=== PATIENT | female | born 1945 | race Caucasian/White ===

== ENCOUNTER 2017-04-19 10:35 | Inpatient (IN) | payer MEDICARE, MEDICAID ==
[~2017-04-19] VITALS: Ht 157.5 cm; Wt 74.8 kg
[2017-04-19] MEDS ORDERED: SERT25TA PO (10:53)
--- NOTE | 2017-04-19 11:00 | NUR ---
Dr morgan at the bedside for MSE. Pt BIB daughter for Psych eval stating pt is unable to take care of self and confused. Dr schwartz sent them here for eval.
--- NOTE | 2017-04-19 11:04 | NUR ---
Hanh coleman in EDM - 04/19/17 at 1115 by CLYDE ambulanz at bedside to take the pt back home. pt comfortable the whole er stay. pt happy to go home.
--- NOTE | 2017-04-19 11:07 | NUR ---
Hanh coleman in ED - 04/19/17 at 1115 by CLYDE pt voided in the bedside commode, able to move with no difficulty.
--- NOTE | 2017-04-19 11:08 | NUR ---
Dr Pereyra removed contac lens from RT eye, pt tolorated well.
[2017-04-19 11:27] LABS: BASOPHILS # (AUTO) 0.1 K/uL (0.0-8.0); BASOPHILS % (AUTO) 0.7 % (0.0-2.0); EOSINOPHILS # (AUTO) 0.1 K/uL (0.0-0.7); EOSINOPHILS % (AUTO) 1.4 % (0.0-7.0); HEMATOCRIT 35.1 % (31.2-41.9); HEMOGLOBIN 11.8 g/dL (10.9-14.3); LYMPHOCYTES # (AUTO) 1.4 K/uL (20.0-40.0); LYMPHOCYTES % (AUTO) 16.2 % (20.5-51.5); MEAN CORPUSCULAR HEMOGLOBIN 30.9 uug (24.7-32.8); MEAN CORPUSCULAR HGB CONC 34 g/dL (32.3-35.6); MONOCYTES # (AUTO) 0.7 K/uL (2.0-10.0); MONOCYTES % (AUTO) 8.6 % (0.0-11.0); NEUTROPHILS # (AUTO) 6.3 K/uL (1.8-8.9); NEUTROPHILS % (AUTO) 73.1 % (38.5-71.5); PLATELET COUNT (AUTO) 325 K/uL (179-408); RED BLOOD CELL COUNT(AUTO) 3.82 MIL/uL (3.63-4.92); WHITE BLOOD COUNT (AUTO) 8.6 K/uL (3.8-11.8)
[2017-04-19 11:35] LABS: CARBON DIOXIDE 31 mmol/L (21-32); CHLORIDE 102 mmol/L (98-107); GLUCOSE 99 mg/dL (74-106); UREA NITROGEN, BLOOD 11 mg/dL (7-18)
[2017-04-19 11:41] LABS: ALANINE AMINOTRANSFERASE 10 U/L (14-59); ALKALINE PHOSPHATASE 148 U/L (50-136); ASPARTATE AMINOTRANSFERASE 12 U/L (15-37); BILIRUBIN,DIRECT 0.1 mg/dL (0.0-0.2); BILIRUBIN,TOTAL 0.4 mg/dL (0.2-1.0); TOTAL PROTEIN, SERUM 8.2 g/dL (6.4-8.2)
[2017-04-19 11:44] LABS: ACETAMINOPHEN < 2.0 ug/mL (10-30)
[2017-04-19 11:50] LABS: ETHANOL < 3 MG/DL (0-0)
--- NOTE | 2017-04-19 11:50 | NUR ---
Pt is medicaly cleared by Dr Pereyra. Left message for Raz Negrete for psych eval. awaiting call back.
--- NOTE | 2017-04-19 12:04 | NUR ---
Raz Negrete from [facility] called and ETA is 15 min.
[2017-04-19 13:47] LABS: *BILIRUBIN,URIN NEGATIVE (NEGATIVE); *BLOOD, URINE 1+ (NEGATIVE); *CLARITY,URINE SLIGHTLY CLOUDY (CLEAR); *COLOR,URINE YELLOW (YELLOW); *PROTEIN,URINE 2+ (NEGATIVE); LEUKOCYTE ESTERASE ,URINE 2+ (NEGATIVE); NITRITE, URINE POSITIVE (NEGATIVE); PH,URINE 7.5 (5.0-8.0); UGLUCOSE NEGATIVE (NEGATIVE)
[2017-04-19 13:57] LABS: *KETONES,URINE NEGATIVE (NEGATIVE)
[2017-04-19 13:58] LABS: BACTERIA,URINE MODERATE /HPF (NONE SEEN); SQUAMOUS EPITHELIAL CELL,UR MODERATE /HPF (NONE SEEN)
[2017-04-19 14:00] LABS: *AMPHETAMINE, URINE NEGATIVE (NEGATIVE); *BARBITURATE, URINE NEGATIVE (NEGATIVE); *CANNABINOID, URINE NEGATIVE (NEGATIVE); *COCCAINE, URINE NEGATIVE (NEGATIVE); *OPIATE, URINE NEGATIVE (NEGATIVE); *PHENCYCLIDINE SCREEN,URINE NEGATIVE (NEGATIVE)
--- NOTE | 2017-04-19 15:13 | NUR ---
71 YEAR OLD FEMALE ADMITTED TO ROOM 138 B FOR GRAVELY DIABLE AND PSYCHOSIS .PT IS [id number].DAUGHTER AT BED SIDE,ORIENT THE PT TO ROOM AND SURROUNDINGS,V/S ARE STABLE,
[2017-04-19] MEDS ORDERED: MAG HYDROX/AL HYDROX/SIMETH 30 ML LIQUID UDC PO PRN (15:15)
[2017-04-19] MEDS ORDERED: MAGNESIUM HYDROXIDE 30 ML LIQUID UDC PO PRN (15:15)
[2017-04-19] MEDS ORDERED: ACETAMINOPHEN 325 MG TABLET PO PRN (15:15)
[2017-04-19] MEDS ORDERED: TEMAZEPAM 7.5 MG CAPSULE PO PRN (15:15)
[2017-04-19] MEDS ORDERED: LORAZEPAM 0.5 MG TABLET PO PRN (15:15)
--- NOTE | 2017-04-19 15:20 | NUR ---
dr Denny and dr schwartz notified for the admissions
[2017-04-19 16:04] VITALS: BP 148/74
--- NOTE | 2017-04-19 19:45 | NUR ---
RECEIVED PATIENT IN HER ROOM SITTING IN HER BED. SHE WAS NOTED A/O X 2. SHE IS ABLE TO AMBULATED WITH STEADY GAIT WITH THE AID OF A FWW. PATIENT WAS NOTED DISORIENTED, FLIGHT OF IDEAS, TANGENTIAL. HOWEVER, SHE IS ABLE TO MAKE HER NEEDS KNOWN. IT WAS NOTED THAT HER URINALYSIS RESULTS SHOW POSSIBLE UTI. PATIENT IS POOR HISTORIAN AND UNABLE TO DETERMINE IF PATIENT IS ALLERGIC TO ANY MEDICATION OR FOOD. CALLED LINDA RENE AT [phone], LEFT MESSAGE TO CALL BACK. AWAITING FOR HER CALL BACK. SAFETY WAS EMPHASIS. PATIENT DENIES PAIN AT THIS TIME. WILL CONTINUE TO MONITOR CLOSELY.
[2017-04-19 20:20] VITALS: BP 108/50
--- NOTE | 2017-04-19 20:20 | NUR ---
SPOKE WITH DAUGHTER CLINTON VIA PHONE CALL. SHE WAS ASKED ABOUT HER MOTHER DRUG AND FOOD ALLERGIES. SHE STATED THAT " FAR I KNOW, MY MOTHER IS NOT ALLERGIC TO ANY FOOD OF MEDICATIONS". WE WILL UP DATE RECORDS. WILL CONTINUE TO MONITOR CLOSELY.
--- NOTE | 2017-04-19 20:20 | NUR ---
LEFT MESSAGE TO THE DOCTOR WARRANT SERVER DR. MURO. RE: URINALYSIS RESULTS. AWAITING FOR A CALL BACK.
--- NOTE | 2017-04-19 20:30 | NUR ---
RECEIVED A CALL BACK FROM DR. MURO RE: URINALYSIS RESULTS. PER TO ORDER A CULTURE AND SENSITIVITY URINE. ORDER WAS NOTED A CARRIED OUT. WILL CONTINUE TO MONITOR PATIENT CLOSELY.
--- NOTE | 2017-04-20 06:48 | NUR ---
PATIENT SLEPT FOR APPROX 7.30 HRS THROUGH THE NIGHT. SHE WAS COMPLIANT WITH AM SHOWER. SHE WAS NOTED EASILY IRRITABLE, CONFUSED AT TIMES. DENIES PAIN AT THIS TIME. WILL CONTINUE TO MONITOR.
[2017-04-20 07:30] VITALS: BP 111/75
--- NOTE | 2017-04-20 07:43 | NUR ---
RECEIVED PT WALKING IN THE HALLWAY ,PT ISO X2X1.PT IS TATYANA TO TELL THE NEEDS ,
--- NOTE | 2017-04-20 09:08 | NUR ---
PT IS SEEN BY DR MURO.NEW ORDERS RECEIVED NOTED AND CARRIED OUT,
[2017-04-20] MEDS: LEVOFLOXACIN 250 MG TABLET PO SCH (10:46)
--- NOTE | 2017-04-20 13:00 | NUR ---
D/C ORDERS RECEIVED NOTED AND CARRIED OUT,D/C INSTRUCTIONS AND RN REPORT GIVEN OVER TO [facility],PTS FAMILY NOTIFIED ABOUT THE PT DISCHARGE,PT LEFT THE FACILITY VIA AMBULANCES. Addendum: 04/20/17 at 1306 by ROSS AKHTAR LVN WRONG PT CHARTING
--- NOTE | 2017-04-20 15:03 | NUR ---
Initial DC Plan: Patient currently lives at home with her daughter [[address] [place] [address]; [phone]]. SW will follow up with MD, patient, and patient's daughter Dane [[phone]] to discuss most appropriate discharge plans. SW will form a safe and proper discharge.
[2017-04-20 15:04] VITALS: BP 132/87
--- NOTE | 2017-04-20 15:11 | NUR ---
Firearms Reporting: TUCKER faxed Mental Health Report to [facility] on 04/20.
[2017-04-20 20:00] VITALS: BP 116/56
[2017-04-20] MEDS: QUETIAPINE FUMARATE 25 MG TABLET PO SCH (21:00)
--- NOTE | 2017-04-20 21:51 | NUR ---
RECEIVED PATIENT IN HIS ROOM SITTING IN HER BED. SHE WAS NOTED A/O X 2. SHE IS ABLE TO AMBULATED WITH STEADY GAIT AND ABLE TO MAKE HER NEEDS KNOWN. SHE WAS NOTED CONFUSED, EASILY IRRITABLE FORGETFUL AND DISORGANIZED. LABILE MOOD, BLUNTED AFFECTED WAS ALSO NOTED. PATIENT REFUSED SEROQUEL 12.5MG PO QHS. MULTIPLE REDIRECTION GIVEN, YET REFUSED. HOWEVER, SHE REQUESTED MEDICATION FOR UPSET STOMACH. MYLANTA PO PRN WAS GIVEN. VITAL SIGNS STABLE AT THIS TIME. SAFETY WAS EMPHASIS. WILL CONTINUE TO MONITOR CLOSELY.
--- NOTE | 2017-04-21 00:45 | NUR ---
PATIENT PRESENTED WITH LOOSE STOOL X1. DENIES PAIN. VITAL SIGNS STABLE AT THIS TIME. SHOWER WAS GIVEN AND PATIENT WAS BACK IN BED. WILL CONTINUE TO MONITOR CLOSELY.
[2017-04-21 07:30] VITALS: BP 92/57
--- NOTE | 2017-04-21 07:35 | NUR ---
RECEIVED PT IN BED SLEEPING ,PT ISO X2X1.PT IS TATYANA TO TELL THE NEEDS ,
[2017-04-21 08:51] LABS: THYROID STIMULATING HORMONE 2.227 mIU/mL (0.358-3.740)
[2017-04-21] MEDS: LEVOFLOXACIN 250 MG TABLET PO SCH (09:25)
[2017-04-21 15:05] VITALS: BP 101/66
[2017-04-21] MEDS: QUETIAPINE FUMARATE 25 MG TABLET PO SCH (20:18)
[2017-04-21 20:25] VITALS: BP 97/59
--- NOTE | 2017-04-22 06:29 | NUR ---
GPS: REMAIN UNCOOPERATIVE WITH MEDICATIONS AND CARE. NO AGITATION NOTED AT THIS TIME. SLEPT 6:30 HRS THROUGH THE NIGHT. CONTINUE MONITORING FOR SAFETY.
[2017-04-22 08:01] VITALS: BP 105/64
[2017-04-22 08:02] VITALS: BP 125/84
[2017-04-22] MEDS: LEVOFLOXACIN 250 MG TABLET PO SCH (09:33)
[2017-04-22 15:51] VITALS: BP 107/59
[2017-04-22] MEDS: CYANOCOBALAMIN 1000 MCG/ML VIAL IM SCH (16:44)
--- NOTE | 2017-04-22 18:31 | NUR ---
NSG/GPS IM B12 ADMINISTERED RIGHT UPPER GLUTEAL, PATIENT TOLERATED WELL HOWEVER DID EXPRESS FEELING QUEAZY. TO BE ENDORSED FOR FOLLOW UP AND REPORT TO Av
[2017-04-22] MEDS: QUETIAPINE FUMARATE 25 MG TABLET PO SCH (20:10)
[2017-04-22 20:33] VITALS: BP 115/85
--- NOTE | 2017-04-23 06:12 | NUR ---
GPS: REMAIN COOPERATIVE WITH MEDICATIONS,REFUSED SHOWER THIS MORNING. SLEPT 4 HRS THROUGH THE NIGHT. PATIENT STATED I AM NOT SICK,I WANT GO HOME. CONTINUE MONITORING FOR SAFETY.
[2017-04-23 07:30] VITALS: BP 140/83
[2017-04-23] MEDS: CYANOCOBALAMIN 1000 MCG/ML VIAL IM SCH (08:53)
[2017-04-23] MEDS: LEVOFLOXACIN 250 MG TABLET PO SCH ×2 (10:00→10:45)
[2017-04-23 15:44] VITALS: BP 144/86
[2017-04-23] MEDS: QUETIAPINE FUMARATE 25 MG TABLET PO SCH (20:24)
[2017-04-23 20:25] VITALS: BP 140/78
[2017-04-24 07:30] VITALS: BP 122/63
[2017-04-24] MEDS: LEVOFLOXACIN 250 MG TABLET PO SCH (09:19)
[2017-04-24] MEDS: CYANOCOBALAMIN 1000 MCG/ML VIAL IM SCH (09:19)
[2017-04-24 15:53] VITALS: BP 135/83
[2017-04-24 19:50] VITALS: BP 114/73
[2017-04-24] MEDS: QUETIAPINE FUMARATE 25 MG TABLET PO SCH (20:03)
[2017-04-24] MEDS ORDERED: CEPHALEXIN MONOHYDRATE 500 MG CAPSULE PO SCH (21:00)
[2017-04-25] MEDS: CEPHALEXIN MONOHYDRATE 500 MG CAPSULE PO SCH ×2 (08:03→21:41)
[2017-04-25] MEDS: CYANOCOBALAMIN 1000 MCG/ML VIAL IM SCH (08:03)
[2017-04-25 08:18] VITALS: BP 113/60
[2017-04-25 17:32] VITALS: BP 121/75
[2017-04-25 20:00] VITALS: BP 99/56
[2017-04-25] MEDS: QUETIAPINE FUMARATE 25 MG TABLET PO SCH (21:49)
--- NOTE | 2017-04-25 22:00 | NUR ---
RECEIVED PT IN HER ROOM, SHE WAS NOTED A/O X 2. SHE IS ABLE TO MAKE HER NEEDS KNOWN AND ABLE TO AMBULATED WITH STEADY GAIT. SHE WAS NOTED WITH FLIGHT OF IDEAS, SARCASTIC AT TIMES. SHE INITIALLY REFUSED SEROQUEL; HOWEVER, LATER SHE TOOK ALL HER MEDICATIONS. B/P WAS RECHECKED BEFORE SEROQUEL WAS GIVEN AND WAS 117/61MMHG. SAFETY WAS EMPHASIS. WILL CONTINUE TO MONITOR.
[2017-04-26 07:30] VITALS: BP 109/74
[2017-04-26] MEDS: CEPHALEXIN MONOHYDRATE 500 MG CAPSULE PO SCH ×2 (08:17→20:30)
[2017-04-26 15:54] VITALS: BP 113/79
[2017-04-26 20:00] VITALS: BP 111/69
[2017-04-26] MEDS: QUETIAPINE FUMARATE 25 MG TABLET PO SCH (20:30)
--- NOTE | 2017-04-26 21:51 | NUR ---
PATIENT RECEIVED IN BED AWAKE. PATIENT PLEASANT, CALM, AND COOPERATIVE UPON APPROACH. PATIENT IS EASILY IRRITABLE, AGITATED AND LABILE TOWARDS STAFF IS REDIRECTABLE. PATIENT COMPLAINT WITH MEDICATION. PATIENT DENIES SI, WILL CONTINUE TO MONITOR. BED IN LOWEST POSITION, BED LOCKED, AND BED ALARM ON WHILE IN BED. NO AGGRESSIVE OR COMBATIVE BEHAVIOR NOTED WILL CONTINUE TO MONITOR AND REDIRECT NEEDED
[2017-04-27 07:30] VITALS: BP 107/68
[2017-04-27] MEDS ORDERED: CYANOCOBALAMIN 1,000 MCG TABLET PO SCH (09:00)
--- NOTE | 2017-04-27 10:35 | NUR ---
DC Note: Patient will be discharged to [facility] [[address] [place] [address]; ] via ambulance at 3pm. TUCKER spoke with Fransisco at [facility] to confirm discharge plans. Patient is aware and agreeable to discharge plans. Patient's daughter Dane [[phone]] is aware and agreeable to discharge plans. Patient will follow up with Dr. Valerio (Naval Architect Specialist) and Dr. Burrows (Psychiatrist).
[2017-04-27 15:39] VITALS: BP 115/74
--- NOTE | 2017-04-27 17:11 | NUR ---
1400 Called [facility] facility spoke with Jacqueline Grove and informed about patient will be discharged to their facility via ambulance.Rn informed regarding patient diagnosis, medications to continue upon discharged.[id number] Patient picked up by ambulance and discharged to [facility] stable condition.
== END 2017-04-27 16:40 | DRG 885 ==
LOC: ER 10:35 → GPS 13:48
PROVIDERS: ADMIT Psychiatry & Neurology Psychosomatic Medicine; ATTEND Internal Medicine
DX: F29 Unspecified psychosis not due to a substance or known physiological condition (principal); F01.51 Vascular dementia, unspecified severity, with behavioral disturbance; G93.89 Other specified disorders of brain; N39.0 Urinary tract infection, site not specified; I69.398 Other sequelae of cerebral infarction; M24.478 Recurrent dislocation, left toe(s); Z91.83 Wandering in diseases classified elsewhere; B96.4 Proteus (mirabilis) (morganii) as the cause of diseases classified elsewhere; E53.8 Deficiency of other specified B group vitamins; I10 Essential (primary) hypertension; Z90.710 Acquired absence of both cervix and uterus; Z82.49 Family history of ischemic heart disease and other diseases of the circulatory system; Z83.3 Family history of diabetes mellitus; Z82.3 Family history of stroke
CPT/HCPCS: 36415; 70450; 71045; 73630; 80307; 82746; 84443; 85025; 86592; 87077; 87086; 93005; A4663; G0480; G0480-TC; J3420

== ENCOUNTER 2017-12-27 10:55 | Inpatient (IN) | payer MEDICARE, MEDICAID ==
[~2017-12-27] VITALS: Ht 162.6 cm; Wt 59.0 kg
[2017-12-27 11:26] LABS: BASOPHILS % (AUTO) 0.5 % (0.0-2.0); EOSINOPHILS % (AUTO) 0.1 % (0.0-7.0); HEMATOCRIT 32.9 % (31.2-41.9); HEMOGLOBIN 11.5 g/dL (10.9-14.3); LYMPHOCYTES # (AUTO) 2.6 K/uL (20.0-40.0); LYMPHOCYTES % (AUTO) 27.2 % (20.5-51.5); MEAN CORPUSCULAR HEMOGLOBIN 31.6 uug (24.7-32.8); MEAN CORPUSCULAR HGB CONC 35 g/dL (32.3-35.6); MEAN CORPUSCULAR VOLUME 90.3 fL (75.5-95.3); NEUTROPHILS # (AUTO) 5.9 K/uL (1.8-8.9); NEUTROPHILS % (AUTO) 62.2 % (38.5-71.5); PLATELET COUNT (AUTO) 534 K/uL (179-408); RED BLOOD CELL COUNT(AUTO) 3.64 MIL/uL (3.63-4.92); WHITE BLOOD COUNT (AUTO) 9.5 K/uL (3.8-11.8)
[2017-12-27 11:31] LABS: CARBON DIOXIDE 28 mmol/L (21-32); CHLORIDE 98 mmol/L (98-107); CREATININE 1.5 mg/dL (0.6-1.3); GLUCOSE 106 mg/dL (74-106); POTASSIUM 4.8 mmol/L (3.5-5.1); UREA NITROGEN, BLOOD 33 mg/dL (7-18)
[2017-12-27 12:24] LABS: *BILIRUBIN,URIN NEGATIVE (NEGATIVE); *BLOOD, URINE 3+ (NEGATIVE); *CLARITY,URINE TURBID (CLEAR); *COLOR,URINE AMBER (YELLOW); *KETONES,URINE NEGATIVE (NEGATIVE); *UROBILINOGEN,URINE 0.2 E.U./dl (NORMAL); LEUKOCYTE ESTERASE ,URINE 1+ (NEGATIVE); NITRITE, URINE NEGATIVE (NEGATIVE); UGLUCOSE NEGATIVE (NEGATIVE)
[2017-12-27 12:30] LABS: *PROTEIN,URINE 3+ (NEGATIVE)
[2017-12-27 12:33] LABS: BACTERIA,URINE MODERATE /HPF (NONE SEEN); RBC,URINE TNTC /HPF (0-3); SQUAMOUS EPITHELIAL CELL,UR FEW /HPF (NONE SEEN)
[2017-12-27] MEDS ORDERED: CYAN10009 PO (12:39)
[2017-12-27] MEDS ORDERED: MAGN400O6 PO (12:39)
[2017-12-27] MEDS ORDERED: FERR325T6 PO (12:39)
[2017-12-27] MEDS ORDERED: RISP0.5T5 PO (12:39)
[2017-12-27] MEDS ORDERED: PROP10DR4 OP (12:39)
[2017-12-27] MEDS ORDERED: BENZ0.5T43 PO (12:39)
[2017-12-27] MEDS ORDERED: MAG355OR18 PO (12:39)
[2017-12-27] MEDS ORDERED: DOCU-141 PO (12:39)
[2017-12-27] MEDS ORDERED: ASPI81TA31 PO (12:39)
[2017-12-27] MEDS ORDERED: CRAN3875 PO (12:39)
[2017-12-27] MEDS ORDERED: CRAN1TAB3 PO (12:39)
[2017-12-27] MEDS ORDERED: RISP1TAB7 PO (12:39)
[2017-12-27] MEDS ORDERED: SERT25TA PO (12:39)
[2017-12-27] MEDS ORDERED: ACET325T53 PO (12:39)
[2017-12-27] MEDS ORDERED: CHOL500062 PO (12:39)
[2017-12-27] MEDS ORDERED: LOPE2CAP PO (12:39)
[2017-12-27] MEDS ORDERED: ATOR20TA PO (12:39)
[2017-12-27] MEDS ORDERED: CEFTRIAXONE 1 G in IV DEXTROSE 5% 50 ML IV ONE (13:30)
[2017-12-27] MEDS ORDERED: CEFTRIAXONE 1 G VIAL ONE (13:46)
[2017-12-27 15:15] VITALS: BP 100/68
[2017-12-27] MEDS ORDERED: ZOLPIDEM 5 MG TABLET PO PRN (16:45)
[2017-12-27] MEDS ORDERED: MAG HYDROX/AL HYDROX/SIMETH 30 ML LIQUID UDC PO PRN (16:45)
[2017-12-27] MEDS ORDERED: MAGNESIUM HYDROXIDE 30 ML LIQUID UDC PO PRN ×2 (16:45)
[2017-12-27] MEDS ORDERED: LOPERAMIDE HCL 2 MG CAPSULE PO PRN (16:45)
[2017-12-27] MEDS ORDERED: HYDROCODONE/APAP 5-325MG TABLET PO PRN (16:45)
[2017-12-27] MEDS ORDERED: ACETAMINOPHEN 325 MG TABLET PO PRN (16:45)
[2017-12-27] MEDS ORDERED: Z GUARD REMEDY PASTE 57 GM TUBE TOP PRN (16:45)
[2017-12-27] MEDS ORDERED: ONDANSETRON 4 MG/2 ML VIAL IV PRN (16:45)
[2017-12-27] MEDS: risperiDONE 0.5 MG TABLET PO SCH (18:56)
[2017-12-27] MEDS: BENZTROPINE MESYLATE 0.5 MG TABLET PO SCH (18:57)
[2017-12-27 20:00] VITALS: BP 101/79
[2017-12-27] MEDS: risperiDONE 1 MG TABLET PO SCH (20:06)
[2017-12-27] MEDS: ATORVASTATIN 20 MG TABLET PO SCH (20:06)
[2017-12-28] VITALS (9 sets, daily range): BP systolic 78–98; BP diastolic 50–61
[2017-12-28 06:56] LABS: BASOPHILS % (AUTO) 0.5 % (0.0-2.0); EOSINOPHILS % (AUTO) 0.1 % (0.0-7.0); HEMOGLOBIN 10.6 g/dL (10.9-14.3); LYMPHOCYTES # (AUTO) 2.3 K/uL (20.0-40.0); MEAN CORPUSCULAR HEMOGLOBIN 31.4 uug (24.7-32.8); MEAN CORPUSCULAR HGB CONC 34 g/dL (32.3-35.6); MEAN CORPUSCULAR VOLUME 91.5 fL (75.5-95.3); MONOCYTES # (AUTO) 0.8 K/uL (2.0-10.0); NEUTROPHILS % (AUTO) 65.4 % (38.5-71.5); PLATELET COUNT (AUTO) 430 K/uL (179-408); RED BLOOD CELL COUNT(AUTO) 3.39 MIL/uL (3.63-4.92); WHITE BLOOD COUNT (AUTO) 9.2 K/uL (3.8-11.8)
[2017-12-28 07:15] LABS: CARBON DIOXIDE 28 mmol/L (21-32); CHLORIDE 100 mmol/L (98-107); CHOLESTEROL 120 mg/dL (<200); CREATININE 1.1 mg/dL (0.6-1.3); GLUCOSE 106 mg/dL (74-106); HDL CHOLESTEROL 46 mg/dL (40-60); MAGNESIUM 2.5 mg/dL (1.8-2.4); PHOSPHOROUS 3.1 mg/dL (2.5-4.9); POTASSIUM 4.5 mmol/L (3.5-5.1); TRIGLYCERIDES 142 MG/DL (30-150); UREA NITROGEN, BLOOD 26 mg/dL (7-18)
[2017-12-28] MEDS ORDERED: Medication Not On Formulary EA (Sertraline Hcl (Zoloft) 25 MG) PO SCH (09:00)
[2017-12-28] MEDS ORDERED: ASPIRIN 81 MG TAB.CHEW PO SCH (09:00)
[2017-12-28] MEDS: BENZTROPINE MESYLATE 0.5 MG TABLET PO SCH ×2 (09:33→17:50)
[2017-12-28] MEDS: DOCUSATE SODIUM 100 MG CAPSULE PO SCH (09:34)
[2017-12-28] MEDS: risperiDONE 0.5 MG TABLET PO SCH ×2 (09:34→17:50)
[2017-12-28] MEDS: SERTRALINE HCL 50 MG TABLET PO SCH (09:35)
[2017-12-28] MEDS: CYANOCOBALAMIN 1,000 MCG TABLET PO SCH (09:45)
[2017-12-28] MEDS ORDERED: IV NORMAL SALINE 500 ML IV ONE (14:20)
[2017-12-28] MEDS: CEFTRIAXONE 1 G in IV DEXTROSE 5% 50 ML IV SCH (14:56)
[2017-12-28] MEDS: POTASSIUM CHLORIDE 10 MEQ in IV NS 1000 ML 1,000 ML IV PRN (15:02)
[2017-12-28] MEDS: risperiDONE 1 MG TABLET PO SCH (20:11)
[2017-12-28] MEDS: ATORVASTATIN 20 MG TABLET PO SCH (20:11)
[2017-12-29] MEDS: POTASSIUM CHLORIDE 10 MEQ in IV NS 1000 ML 1,000 ML IV PRN ×2 (05:15→21:03)
[2017-12-29 06:14] VITALS: BP 96/54
[2017-12-29 06:48] LABS: BASOPHILS % (AUTO) 0.5 % (0.0-2.0); EOSINOPHILS % (AUTO) 0.4 % (0.0-7.0); HEMATOCRIT 29.3 % (31.2-41.9); HEMOGLOBIN 9.9 g/dL (10.9-14.3); LYMPHOCYTES # (AUTO) 1.5 K/uL (20.0-40.0); LYMPHOCYTES % (AUTO) 22.4 % (20.5-51.5); MEAN CORPUSCULAR HEMOGLOBIN 31.3 uug (24.7-32.8); MEAN CORPUSCULAR HGB CONC 34 g/dL (32.3-35.6); MEAN CORPUSCULAR VOLUME 92.3 fL (75.5-95.3); MONOCYTES # (AUTO) 0.6 K/uL (2.0-10.0); MONOCYTES % (AUTO) 8.5 % (0.0-11.0); NEUTROPHILS # (AUTO) 4.6 K/uL (1.8-8.9); NEUTROPHILS % (AUTO) 68.2 % (38.5-71.5); PLATELET COUNT (AUTO) 327 K/uL (179-408); RED BLOOD CELL COUNT(AUTO) 3.17 MIL/uL (3.63-4.92); WHITE BLOOD COUNT (AUTO) 6.8 K/uL (3.8-11.8)
[2017-12-29 07:07] LABS: ALANINE AMINOTRANSFERASE 10 U/L (14-59); ALKALINE PHOSPHATASE 95 U/L (50-136); ASPARTATE AMINOTRANSFERASE 9 U/L (15-37); BILIRUBIN,TOTAL 0.2 mg/dL (0.2-1.0); CARBON DIOXIDE 27 mmol/L (21-32); CHLORIDE 106 mmol/L (98-107); GLUCOSE 92 mg/dL (74-106); MAGNESIUM 2.1 mg/dL (1.8-2.4); PHOSPHOROUS 2.7 mg/dL (2.5-4.9); POTASSIUM 4.1 mmol/L (3.5-5.1); TOTAL PROTEIN, SERUM 6.6 g/dL (6.4-8.2); UREA NITROGEN, BLOOD 17 mg/dL (7-18)
[2017-12-29] MEDS: CYANOCOBALAMIN 1,000 MCG TABLET PO SCH (08:21)
[2017-12-29] MEDS: SERTRALINE HCL 50 MG TABLET PO SCH (08:21)
[2017-12-29] MEDS: DOCUSATE SODIUM 100 MG CAPSULE PO SCH (08:21)
[2017-12-29] MEDS: risperiDONE 0.5 MG TABLET PO SCH ×2 (08:21→17:40)
[2017-12-29] MEDS: BENZTROPINE MESYLATE 0.5 MG TABLET PO SCH ×2 (08:21→17:40)
[2017-12-29 11:14] VITALS: BP 83/53
[2017-12-29] MEDS: CEFTRIAXONE 1 G in IV DEXTROSE 5% 50 ML IV SCH (14:26)
[2017-12-29 15:04] VITALS: BP 89/49
[2017-12-29 19:30] VITALS: BP 83/52
[2017-12-29] MEDS: risperiDONE 1 MG TABLET PO SCH (20:01)
[2017-12-29] MEDS: ATORVASTATIN 20 MG TABLET PO SCH (20:01)
[2017-12-30 06:28] VITALS: BP 84/47
[2017-12-30 06:39] LABS: BASOPHILS # (AUTO) 0.1 K/uL (0.0-8.0); BASOPHILS % (AUTO) 0.6 % (0.0-2.0); EOSINOPHILS # (AUTO) 0.1 K/uL (0.0-0.7); EOSINOPHILS % (AUTO) 0.7 % (0.0-7.0); HEMATOCRIT 27.4 % (31.2-41.9); HEMOGLOBIN 9.1 g/dL (10.9-14.3); LYMPHOCYTES # (AUTO) 2.3 K/uL (20.0-40.0); LYMPHOCYTES % (AUTO) 27.7 % (20.5-51.5); MEAN CORPUSCULAR HGB CONC 33 g/dL (32.3-35.6); MEAN CORPUSCULAR VOLUME 93.3 fL (75.5-95.3); MONOCYTES # (AUTO) 0.7 K/uL (2.0-10.0); MONOCYTES % (AUTO) 8.5 % (0.0-11.0); NEUTROPHILS # (AUTO) 5.2 K/uL (1.8-8.9); NEUTROPHILS % (AUTO) 62.5 % (38.5-71.5); PLATELET COUNT (AUTO) 318 K/uL (179-408); RED BLOOD CELL COUNT(AUTO) 2.94 MIL/uL (3.63-4.92); WHITE BLOOD COUNT (AUTO) 8.3 K/uL (3.8-11.8)
[2017-12-30 06:54] LABS: CARBON DIOXIDE 25 mmol/L (21-32); CHLORIDE 108 mmol/L (98-107); GLUCOSE 85 mg/dL (74-106); POTASSIUM 4.4 mmol/L (3.5-5.1); UREA NITROGEN, BLOOD 11 mg/dL (7-18)
[2017-12-30] MEDS: BENZTROPINE MESYLATE 0.5 MG TABLET PO SCH ×2 (08:30→17:13)
[2017-12-30] MEDS: risperiDONE 0.5 MG TABLET PO SCH ×2 (08:31→17:13)
[2017-12-30] MEDS: CYANOCOBALAMIN 1,000 MCG TABLET PO SCH (08:31)
[2017-12-30] MEDS: DOCUSATE SODIUM 100 MG CAPSULE PO SCH (08:31)
[2017-12-30] MEDS: SERTRALINE HCL 50 MG TABLET PO SCH (08:32)
[2017-12-30] MEDS: POTASSIUM CHLORIDE 10 MEQ in IV NS 1000 ML 1,000 ML IV PRN (08:33)
[2017-12-30 11:21] VITALS: BP 92/60
[2017-12-30] MEDS: CEPHALEXIN MONOHYDRATE 500 MG CAPSULE PO SCH ×2 (12:23→20:36)
[2017-12-30 15:58] VITALS: BP 82/55
[2017-12-30 20:00] VITALS: BP 89/57
[2017-12-30] MEDS: ATORVASTATIN 20 MG TABLET PO SCH (20:36)
[2017-12-30] MEDS: risperiDONE 1 MG TABLET PO SCH (20:36)
[2017-12-31] MEDS: POTASSIUM CHLORIDE 10 MEQ in IV NS 1000 ML 1,000 ML IV PRN ×2 (01:52→23:39)
[2017-12-31 05:03] VITALS: BP 103/69
[2017-12-31 06:14] LABS: BASOPHILS % (AUTO) 0.5 % (0.0-2.0); EOSINOPHILS # (AUTO) 0.1 K/uL (0.0-0.7); HEMATOCRIT 26.6 % (31.2-41.9); LYMPHOCYTES # (AUTO) 2.4 K/uL (20.0-40.0); MEAN CORPUSCULAR HEMOGLOBIN 31.4 uug (24.7-32.8); MEAN CORPUSCULAR HGB CONC 34 g/dL (32.3-35.6); MEAN CORPUSCULAR VOLUME 92.9 fL (75.5-95.3); MONOCYTES # (AUTO) 0.6 K/uL (2.0-10.0); MONOCYTES % (AUTO) 7.8 % (0.0-11.0); NEUTROPHILS # (AUTO) 4.6 K/uL (1.8-8.9); NEUTROPHILS % (AUTO) 59.7 % (38.5-71.5); PLATELET COUNT (AUTO) 282 K/uL (179-408); RED BLOOD CELL COUNT(AUTO) 2.86 MIL/uL (3.63-4.92); WHITE BLOOD COUNT (AUTO) 7.7 K/uL (3.8-11.8)
[2017-12-31 06:48] LABS: CARBON DIOXIDE 27 mmol/L (21-32); CHLORIDE 106 mmol/L (98-107); CREATININE 0.8 mg/dL (0.6-1.3); GLUCOSE 87 mg/dL (74-106); MAGNESIUM 1.8 mg/dL (1.8-2.4); PHOSPHOROUS 2.6 mg/dL (2.5-4.9); POTASSIUM 3.7 mmol/L (3.5-5.1)
[2017-12-31 06:59] LABS: UREA NITROGEN, BLOOD 9 mg/dL (7-18)
[2017-12-31] MEDS: BENZTROPINE MESYLATE 0.5 MG TABLET PO SCH ×2 (09:29→17:10)
[2017-12-31] MEDS: DOCUSATE SODIUM 100 MG CAPSULE PO SCH (09:29)
[2017-12-31] MEDS: risperiDONE 0.5 MG TABLET PO SCH ×2 (09:29→17:10)
[2017-12-31] MEDS: SERTRALINE HCL 50 MG TABLET PO SCH (09:30)
[2017-12-31] MEDS: CEPHALEXIN MONOHYDRATE 500 MG CAPSULE PO SCH ×2 (09:30→21:19)
[2017-12-31] MEDS: CYANOCOBALAMIN 1,000 MCG TABLET PO SCH (09:30)
[2017-12-31 11:30] VITALS: BP 105/60
[2017-12-31 15:08] VITALS: BP 98/62
[2017-12-31 20:05] VITALS: BP 95/57
[2017-12-31] MEDS: risperiDONE 1 MG TABLET PO SCH (21:19)
[2017-12-31] MEDS: ATORVASTATIN 20 MG TABLET PO SCH (21:20)
[2018-01-01] VITALS (7 sets, daily range): BP systolic 73–104; BP diastolic 41–62
[2018-01-01 06:30] LABS: BASOPHILS # (AUTO) 0.1 K/uL (0.0-8.0); BASOPHILS % (AUTO) 0.6 % (0.0-2.0); EOSINOPHILS # (AUTO) 0.1 K/uL (0.0-0.7); EOSINOPHILS % (AUTO) 0.7 % (0.0-7.0); HEMATOCRIT 26.6 % (31.2-41.9); HEMOGLOBIN 9.1 g/dL (10.9-14.3); LYMPHOCYTES # (AUTO) 2.5 K/uL (20.0-40.0); LYMPHOCYTES % (AUTO) 27.8 % (20.5-51.5); MEAN CORPUSCULAR HEMOGLOBIN 31.3 uug (24.7-32.8); MEAN CORPUSCULAR HGB CONC 34 g/dL (32.3-35.6); MEAN CORPUSCULAR VOLUME 91.8 fL (75.5-95.3); MONOCYTES # (AUTO) 0.7 K/uL (2.0-10.0); MONOCYTES % (AUTO) 7.8 % (0.0-11.0); NEUTROPHILS # (AUTO) 5.8 K/uL (1.8-8.9); NEUTROPHILS % (AUTO) 63.1 % (38.5-71.5); PLATELET COUNT (AUTO) 267 K/uL (179-408); WHITE BLOOD COUNT (AUTO) 9.2 K/uL (3.8-11.8)
[2018-01-01 06:44] LABS: CARBON DIOXIDE 28 mmol/L (21-32); CHLORIDE 104 mmol/L (98-107); CREATININE 0.7 mg/dL (0.6-1.3); GLUCOSE 90 mg/dL (74-106); MAGNESIUM 1.7 mg/dL (1.8-2.4); PHOSPHOROUS 2.6 mg/dL (2.5-4.9); POTASSIUM 3.7 mmol/L (3.5-5.1); UREA NITROGEN, BLOOD 7 mg/dL (7-18)
[2018-01-01] MEDS: CYANOCOBALAMIN 1,000 MCG TABLET PO SCH (08:20)
[2018-01-01] MEDS: CEPHALEXIN MONOHYDRATE 500 MG CAPSULE PO SCH ×2 (08:20→20:14)
[2018-01-01] MEDS: DOCUSATE SODIUM 100 MG CAPSULE PO SCH (08:20)
[2018-01-01] MEDS: BENZTROPINE MESYLATE 0.5 MG TABLET PO SCH ×2 (08:20→17:00)
[2018-01-01] MEDS: SERTRALINE HCL 50 MG TABLET PO SCH (08:21)
[2018-01-01] MEDS: risperiDONE 0.5 MG TABLET PO SCH ×2 (08:22→17:00)
[2018-01-01] MEDS ORDERED: CEPH500C2 PO (10:09)
[2018-01-01] MEDS ORDERED: IV NORMAL SALINE 500 ML IV ONE (13:15)
[2018-01-01] MEDS: MAGNESIUM SULFATE/D5W 100 ML IV SCH ×2 (14:18→15:54)
[2018-01-01] MEDS: ATORVASTATIN 20 MG TABLET PO SCH (20:14)
[2018-01-01] MEDS: risperiDONE 1 MG TABLET PO SCH (20:14)
[2018-01-02] MEDS: POTASSIUM CHLORIDE 10 MEQ in IV NS 1000 ML 1,000 ML IV PRN ×2 (00:18→17:34)
[2018-01-02 04:43] VITALS: BP 90/57
[2018-01-02 07:50] LABS: CARBON DIOXIDE 27 mmol/L (21-32); CHLORIDE 107 mmol/L (98-107); CREATININE 0.6 mg/dL (0.6-1.3); GLUCOSE 87 mg/dL (74-106); MAGNESIUM 1.8 mg/dL (1.8-2.4); POTASSIUM 3.5 mmol/L (3.5-5.1); UREA NITROGEN, BLOOD 7 mg/dL (7-18)
[2018-01-02] MEDS: BENZTROPINE MESYLATE 0.5 MG TABLET PO SCH ×2 (08:17→17:00)
[2018-01-02] MEDS: SERTRALINE HCL 50 MG TABLET PO SCH (08:17)
[2018-01-02] MEDS: DOCUSATE SODIUM 100 MG CAPSULE PO SCH (08:17)
[2018-01-02] MEDS: risperiDONE 0.5 MG TABLET PO SCH ×2 (08:17→17:00)
[2018-01-02] MEDS: CEPHALEXIN MONOHYDRATE 500 MG CAPSULE PO SCH (08:17)
[2018-01-02] MEDS: CYANOCOBALAMIN 1,000 MCG TABLET PO SCH (08:17)
[2018-01-02 11:07] VITALS: BP 83/47
[2018-01-02 14:00] VITALS: BP 79/49
[2018-01-02] MEDS ORDERED: IV NS 1000 ML 1,000 ML IV ONE (14:45)
[2018-01-02 15:23] VITALS: BP 87/54
[2018-01-02 15:37] LABS: BASOPHILS % (AUTO) 0.5 % (0.0-2.0); EOSINOPHILS # (AUTO) 0.1 K/uL (0.0-0.7); EOSINOPHILS % (AUTO) 1.3 % (0.0-7.0); HEMATOCRIT 24.6 % (31.2-41.9); HEMOGLOBIN 8.3 g/dL (10.9-14.3); LYMPHOCYTES # (AUTO) 2.3 K/uL (20.0-40.0); LYMPHOCYTES % (AUTO) 32.7 % (20.5-51.5); MEAN CORPUSCULAR HEMOGLOBIN 30.5 uug (24.7-32.8); MEAN CORPUSCULAR HGB CONC 34 g/dL (32.3-35.6); MEAN CORPUSCULAR VOLUME 90.6 fL (75.5-95.3); MONOCYTES # (AUTO) 0.6 K/uL (2.0-10.0); MONOCYTES % (AUTO) 8.5 % (0.0-11.0); PLATELET COUNT (AUTO) 237 K/uL (179-408); RED BLOOD CELL COUNT(AUTO) 2.71 MIL/uL (3.63-4.92); WHITE BLOOD COUNT (AUTO) 7.1 K/uL (3.8-11.8)
[2018-01-02 15:40] LABS: CARBON DIOXIDE 27 mmol/L (21-32); CHLORIDE 105 mmol/L (98-107); CREATININE 0.6 mg/dL (0.6-1.3); GLUCOSE 116 mg/dL (74-106); POTASSIUM 3.5 mmol/L (3.5-5.1); UREA NITROGEN, BLOOD 8 mg/dL (7-18)
[2018-01-02 15:51] LABS: ALANINE AMINOTRANSFERASE 11 U/L (14-59); ALKALINE PHOSPHATASE 86 U/L (50-136); ASPARTATE AMINOTRANSFERASE 8 U/L (15-37); BILIRUBIN,TOTAL 0.2 mg/dL (0.2-1.0); TOTAL PROTEIN, SERUM 5.4 g/dL (6.4-8.2)
[2018-01-02 17:27] VITALS: BP 90/51
[2018-01-02 19:13] VITALS: BP 92/52
[2018-01-02] MEDS ORDERED: VANCOMYCIN IV 750 MG in IV DEXTROSE 5% 250 ML IV SCH (20:00)
[2018-01-02] MEDS: ATORVASTATIN 20 MG TABLET PO SCH (20:34)
[2018-01-02] MEDS: risperiDONE 1 MG TABLET PO SCH (20:40)
[2018-01-02] MEDS: CEFEPIME HCL 1 G in IV DEXTROSE 5% 50 ML IV SCH (21:38)
[2018-01-03 03:12] VITALS: BP 97/50
[2018-01-03 08:42] LABS: BASOPHILS # (AUTO) 0.1 K/uL (0.0-8.0); BASOPHILS % (AUTO) 0.6 % (0.0-2.0); EOSINOPHILS # (AUTO) 0.1 K/uL (0.0-0.7); EOSINOPHILS % (AUTO) 1.3 % (0.0-7.0); HEMATOCRIT 29.6 % (31.2-41.9); HEMOGLOBIN 10.1 g/dL (10.9-14.3); LYMPHOCYTES # (AUTO) 2.5 K/uL (20.0-40.0); MEAN CORPUSCULAR HEMOGLOBIN 31.5 uug (24.7-32.8); MEAN CORPUSCULAR HGB CONC 34 g/dL (32.3-35.6); MEAN CORPUSCULAR VOLUME 92.4 fL (75.5-95.3); MONOCYTES # (AUTO) 0.5 K/uL (2.0-10.0); MONOCYTES % (AUTO) 6.5 % (0.0-11.0); NEUTROPHILS # (AUTO) 5.1 K/uL (1.8-8.9); NEUTROPHILS % (AUTO) 61.6 % (38.5-71.5); PLATELET COUNT (AUTO) 253 K/uL (179-408); WHITE BLOOD COUNT (AUTO) 8.3 K/uL (3.8-11.8)
[2018-01-03 08:46] LABS: CARBON DIOXIDE 30 mmol/L (21-32); CHLORIDE 104 mmol/L (98-107); CREATININE 0.6 mg/dL (0.6-1.3); GLUCOSE 107 mg/dL (74-106); POTASSIUM 3.4 mmol/L (3.5-5.1); UREA NITROGEN, BLOOD 5 mg/dL (7-18)
[2018-01-03 08:59] LABS: IRON, SERUM 33 ug/dL (50-175)
[2018-01-03] MEDS: BENZTROPINE MESYLATE 0.5 MG TABLET PO SCH ×2 (09:00→16:52)
[2018-01-03] MEDS: risperiDONE 0.5 MG TABLET PO SCH ×2 (09:00→16:53)
[2018-01-03 09:16] LABS: FERRITIN 180 ng/mL (8-252)
[2018-01-03] MEDS: CYANOCOBALAMIN 1,000 MCG TABLET PO SCH (09:44)
[2018-01-03] MEDS: DOCUSATE SODIUM 100 MG CAPSULE PO SCH (09:44)
[2018-01-03] MEDS: SERTRALINE HCL 50 MG TABLET PO SCH (09:45)
[2018-01-03] MEDS: CEFEPIME HCL 1 G in IV DEXTROSE 5% 50 ML IV SCH ×2 (09:46→20:24)
[2018-01-03 11:40] VITALS: BP 83/59
[2018-01-03] MEDS ORDERED: POTASSIUM CHLORIDE 20 MEQ POWDER PACKET PO ONE (15:45)
[2018-01-03 16:02] VITALS: BP 94/59
[2018-01-03 19:21] VITALS: BP 93/54
[2018-01-03] MEDS: POTASSIUM CHLORIDE 10 MEQ in IV NS 1000 ML 1,000 ML IV PRN (19:51)
[2018-01-03] MEDS: risperiDONE 1 MG TABLET PO SCH (20:24)
[2018-01-03] MEDS: ATORVASTATIN 20 MG TABLET PO SCH (20:24)
[2018-01-04] VITALS (8 sets, daily range): BP systolic 72–100; BP diastolic 44–62
[2018-01-04 07:57] LABS: CARBON DIOXIDE 25 mmol/L (21-32); CHLORIDE 105 mmol/L (98-107); CREATININE 0.6 mg/dL (0.6-1.3); GLUCOSE 94 mg/dL (74-106); POTASSIUM 3.5 mmol/L (3.5-5.1); UREA NITROGEN, BLOOD 9 mg/dL (7-18)
[2018-01-04] MEDS: CYANOCOBALAMIN 1,000 MCG TABLET PO SCH (09:10)
[2018-01-04] MEDS: DOCUSATE SODIUM 100 MG CAPSULE PO SCH (09:10)
[2018-01-04] MEDS: BENZTROPINE MESYLATE 0.5 MG TABLET PO SCH ×2 (09:10→17:00)
[2018-01-04] MEDS: SERTRALINE HCL 50 MG TABLET PO SCH (09:10)
[2018-01-04] MEDS: risperiDONE 0.5 MG TABLET PO SCH ×2 (09:10→18:00)
[2018-01-04] MEDS: CEFEPIME HCL 1 G in IV DEXTROSE 5% 50 ML IV SCH (09:27)
[2018-01-04] MEDS: risperiDONE 1 MG TABLET PO SCH (20:24)
[2018-01-04] MEDS: ATORVASTATIN 20 MG TABLET PO SCH (20:25)
[2018-01-04] MEDS: POTASSIUM CHLORIDE 10 MEQ in IV NS 1000 ML 1,000 ML IV PRN (21:49)
[2018-01-05 03:33] VITALS: BP 100/61
[2018-01-05] MEDS: CYANOCOBALAMIN 1,000 MCG TABLET PO SCH (08:29)
[2018-01-05] MEDS: DOCUSATE SODIUM 100 MG CAPSULE PO SCH (08:29)
[2018-01-05] MEDS: SERTRALINE HCL 50 MG TABLET PO SCH (08:30)
[2018-01-05] MEDS: BENZTROPINE MESYLATE 0.5 MG TABLET PO SCH ×2 (08:31→16:26)
[2018-01-05] MEDS: risperiDONE 0.5 MG TABLET PO SCH ×2 (08:31→16:26)
[2018-01-05] MEDS ORDERED: IV NORMAL SALINE 500 ML IV ONE (12:45)
[2018-01-05] MEDS: FLUDROCORTISONE ACETATE 0.1 MG TABLET PO SCH (12:46)
[2018-01-05 15:34] VITALS: BP 83/52
[2018-01-05] MEDS: POTASSIUM CHLORIDE 10 MEQ in IV NS 1000 ML 1,000 ML IV PRN (16:42)
[2018-01-05 20:16] VITALS: BP 101/57
[2018-01-05] MEDS: risperiDONE 1 MG TABLET PO SCH (20:29)
[2018-01-05] MEDS: ATORVASTATIN 20 MG TABLET PO SCH (20:29)
[2018-01-06 04:04] VITALS: BP 111/68
[2018-01-06] MEDS: DOCUSATE SODIUM 100 MG CAPSULE PO SCH (08:40)
[2018-01-06] MEDS: FLUDROCORTISONE ACETATE 0.1 MG TABLET PO SCH (08:40)
[2018-01-06] MEDS: SERTRALINE HCL 50 MG TABLET PO SCH (08:40)
[2018-01-06] MEDS: CYANOCOBALAMIN 1,000 MCG TABLET PO SCH (08:40)
[2018-01-06] MEDS: risperiDONE 0.5 MG TABLET PO SCH (08:41)
[2018-01-06] MEDS: BENZTROPINE MESYLATE 0.5 MG TABLET PO SCH (08:41)
[2018-01-06 08:44] LABS: BASOPHILS # (AUTO) 0.1 K/uL (0.0-8.0); BASOPHILS % (AUTO) 0.6 % (0.0-2.0); EOSINOPHILS # (AUTO) 0.1 K/uL (0.0-0.7); EOSINOPHILS % (AUTO) 1.2 % (0.0-7.0); HEMATOCRIT 28.7 % (31.2-41.9); HEMOGLOBIN 9.7 g/dL (10.9-14.3); LYMPHOCYTES # (AUTO) 2.9 K/uL (20.0-40.0); MEAN CORPUSCULAR HEMOGLOBIN 31.3 uug (24.7-32.8); MEAN CORPUSCULAR HGB CONC 34 g/dL (32.3-35.6); MEAN CORPUSCULAR VOLUME 92.2 fL (75.5-95.3); MONOCYTES # (AUTO) 0.5 K/uL (2.0-10.0); MONOCYTES % (AUTO) 6.3 % (0.0-11.0); NEUTROPHILS # (AUTO) 4.9 K/uL (1.8-8.9); NEUTROPHILS % (AUTO) 57.9 % (38.5-71.5); PLATELET COUNT (AUTO) 245 K/uL (179-408); RED BLOOD CELL COUNT(AUTO) 3.11 MIL/uL (3.63-4.92); WHITE BLOOD COUNT (AUTO) 8.4 K/uL (3.8-11.8)
[2018-01-06 08:48] LABS: CARBON DIOXIDE 30 mmol/L (21-32); CHLORIDE 105 mmol/L (98-107); CREATININE 0.5 mg/dL (0.6-1.3); GLUCOSE 89 mg/dL (74-106); MAGNESIUM 1.7 mg/dL (1.8-2.4); PHOSPHOROUS 2.7 mg/dL (2.5-4.9); POTASSIUM 3.3 mmol/L (3.5-5.1); UREA NITROGEN, BLOOD 7 mg/dL (7-18)
[2018-01-06 09:39] LABS: *BILIRUBIN,URIN NEGATIVE (NEGATIVE); *BLOOD, URINE 1+ (NEGATIVE); *CLARITY,URINE CLEAR (CLEAR); *COLOR,URINE YELLOW (YELLOW); *KETONES,URINE NEGATIVE (NEGATIVE); *PROTEIN,URINE NEGATIVE (NEGATIVE); *UROBILINOGEN,URINE 0.2 E.U./dl (NORMAL); LEUKOCYTE ESTERASE ,URINE 1+ (NEGATIVE); NITRITE, URINE NEGATIVE (NEGATIVE); PH,URINE 5.5 (5.0-8.0); UGLUCOSE NEGATIVE (NEGATIVE)
[2018-01-06 09:44] LABS: BACTERIA,URINE FEW /HPF (NONE SEEN); SQUAMOUS EPITHELIAL CELL,UR FEW /HPF (NONE SEEN)
[2018-01-06 10:50] VITALS: BP_SYST 82; BP_SYST 98; BP_DIAS 59; BP_DIAS 68
[2018-01-06 11:27] VITALS: BP 91/55
[2018-01-06] MEDS ORDERED: POTASSIUM CHLORIDE 20 MEQ POWDER PACKET PO ONE (12:00)
[2018-01-06] MEDS ORDERED: MAGNESIUM SULFATE/D5W 100 ML IV SCH (12:45)
== END 2018-01-06 15:00 | DRG 871 ==
LOC: ER 10:55 → TELE 14:33 → MED 15:38
PROVIDERS: ADMIT Internal Medicine; ATTEND Internal Medicine
DX: A41.9 Sepsis, unspecified organism (principal); G92 Toxic encephalopathy; F20.0 Paranoid schizophrenia; N13.30 Unspecified hydronephrosis; N30.91 Cystitis, unspecified with hematuria; N31.9 Neuromuscular dysfunction of bladder, unspecified; R33.9 Retention of urine, unspecified; G30.9 Alzheimer's disease, unspecified; F02.80 Dementia in other diseases classified elsewhere, unspecified severity, without behavioral disturbance, psychotic disturbance, mood disturbance, and anxiety; N32.0 Bladder-neck obstruction; I11.9 Hypertensive heart disease without heart failure; N28.1 Cyst of kidney, acquired; Z90.710 Acquired absence of both cervix and uterus; K56.41 Fecal impaction; D50.0 Iron deficiency anemia secondary to blood loss (chronic); Z79.899 Other long term (current) drug therapy; B96.20 Unspecified Escherichia coli [E. coli] as the cause of diseases classified elsewhere; I95.2 Hypotension due to drugs; T43.595A Adverse effect of other antipsychotics and neuroleptics, initial encounter; Y92.129 Unspecified place in nursing home as the place of occurrence of the external cause
CPT/HCPCS: 36415; 71045; 76770; 83550; 83735; 84100; 85025; 85730; 87040; 87077; 87086; 93307; 97110; 97116; 97530; A4217; A4663; C1758; G0378; J0692; J0696; J3370; J3475; J3480; J3490; J7030; J7040; J7050; J7060

== ENCOUNTER 2018-03-19 10:51 | Inpatient (IN) | payer MEDICARE, OTHER ==
[~2018-03-19] VITALS: Ht 162.6 cm; Wt 59.0 kg
[~2018-03-19 10:51] MED LIST: ACET325T53 PO; ASPI81TA31 PO; ATOR20TA PO; BENZ0.5T43 PO; CEPH500C2 PO; CHOL500062 PO; CRAN1TAB3 PO; CRAN3875 PO; CYAN10009 PO; DOCU-141 PO; FERR325T6 PO; LOPE2CAP PO; MAG355OR18 PO; MAGN400O6 PO; PROP10DR4 OP; RISP0.5T5 PO; RISP1TAB7 PO; SERT25TA PO
[2018-03-19] MEDS ORDERED: ATOR40TA PO (11:21)
[2018-03-19] MEDS ORDERED: CRAN450C PO (11:21)
[2018-03-19] MEDS ORDERED: CLOP75TA15 PO (11:21)
[2018-03-19] MEDS ORDERED: NA P133E RC (11:21)
--- NOTE | 2018-03-19 11:55 | NUR ---
Pt.in the room,was seen by .
--- NOTE | 2018-03-19 12:31 | NUR ---
PT.SLEEPING,NO S/S OF DISTRESS.
[2018-03-19 12:34] LABS: IRON, SERUM 25 ug/dL (50-175)
[2018-03-19 12:36] LABS: ALANINE AMINOTRANSFERASE 12 U/L (14-59); ALKALINE PHOSPHATASE 93 U/L (50-136); ASPARTATE AMINOTRANSFERASE 9 U/L (15-37); BILIRUBIN,DIRECT 0.1 mg/dL (0.0-0.2); BILIRUBIN,TOTAL 0.2 mg/dL (0.2-1.0); CARBON DIOXIDE 27 mmol/L (21-32); CHLORIDE 99 mmol/L (98-107); CREATININE 0.6 mg/dL (0.6-1.3); GLUCOSE 101 mg/dL (74-106); LIPASE 116 U/L (73-393); POTASSIUM 3.8 mmol/L (3.5-5.1); TOTAL PROTEIN, SERUM 7.8 g/dL (6.4-8.2); UREA NITROGEN, BLOOD 11 mg/dL (7-18)
[2018-03-19 12:40] LABS: BASOPHILS # (AUTO) 0.1 K/uL (0.0-8.0); BASOPHILS % (AUTO) 0.6 % (0.0-2.0); EOSINOPHILS # (AUTO) 0.1 K/uL (0.0-0.7); EOSINOPHILS % (AUTO) 0.9 % (0.0-7.0); HEMATOCRIT 29.8 % (31.2-41.9); LYMPHOCYTES # (AUTO) 2.1 K/uL (20.0-40.0); LYMPHOCYTES % (AUTO) 17.9 % (20.5-51.5); MEAN CORPUSCULAR HGB CONC 34 g/dL (32.3-35.6); MONOCYTES # (AUTO) 0.9 K/uL (2.0-10.0); MONOCYTES % (AUTO) 7.7 % (0.0-11.0); NEUTROPHILS # (AUTO) 8.6 K/uL (1.8-8.9); NEUTROPHILS % (AUTO) 72.9 % (38.5-71.5); PLATELET COUNT (AUTO) 503 K/uL (179-408); RED BLOOD CELL COUNT(AUTO) 3.35 MIL/uL (3.63-4.92); WHITE BLOOD COUNT (AUTO) 11.7 K/uL (3.8-11.8)
--- NOTE | 2018-03-19 13:10 | NUR ---
PT. SLEEPING, NO S/S OF DISTRESSOR PAIN NOTED.
--- NOTE | 2018-03-19 15:14 | NUR ---
SBAR REPORT GIVEN TO RAJAT/RN PT.ADMITED TO M/S # [id number].
[2018-03-19 15:30] VITALS: BP 100/65
--- NOTE | 2018-03-19 15:50 | NUR ---
RECEIVED FOR ADMISSION 72 YEARS OLD FEMALE FROM ED BY JESSI TO ROOM 220 PATIENT IS ALERT TO SELF ANSWERS SOME QUESTIONS BUT IS CONFUSED UNABLE TO PROVIDE ANSWERS TO MOST OF THE QUESTIONS HAD TO RESORT TO MEDICAL RECORDS FOR ANSWERS.SHE IS ON ROOM AIR WITH NO SHORTNESS OF BREATH AT THIS TIME.ORIENTED AND MADE COMFORTABLE WILL CONTINUE TO OBSERVE.
--- NOTE | 2018-03-19 16:20 | NUR ---
CALLED DR ENGLISH FOR ORDERS SPOKE WITH ANSWERING SERVICE MISTY STATED WILL HAVE DR ENGLISH TO RETUN CALL.
--- NOTE | 2018-03-19 17:28 | NUR ---
DR ENGLISH RETURNED CALL WITH NEW ORDERS AND NOTED.
[2018-03-19] MEDS ORDERED: ONDANSETRON 4 MG/2 ML VIAL IV PRN (17:30)
[2018-03-19] MEDS ORDERED: HYDROCODONE/APAP 5-325MG TABLET PO PRN (17:30)
[2018-03-19] MEDS ORDERED: Z GUARD REMEDY PASTE 57 GM TUBE TOP PRN (17:30)
[2018-03-19] MEDS ORDERED: MAGNESIUM HYDROXIDE 30 ML LIQUID UDC PO PRN ×2 (17:30→19:45)
[2018-03-19] MEDS ORDERED: ZOLPIDEM 5 MG TABLET PO PRN (17:30)
--- NOTE | 2018-03-19 18:26 | NUR ---
TOLERATED DIET PATIENT IS A FEEDER ORDERED FIRST STEP DASIA FOR PRESSURE ULCER MANAGEMENT.
--- NOTE | 2018-03-19 19:00 | NUR ---
RECEIVED PATIENT IN BED ALERT, ORIENTED, NO SOB NO CHEST PAIN NOTED, KEPT CLEAN AND DRY, REQUIRES TOTAL ASSIST WITH ADL'S, KEPT COMFORTABLE.
[2018-03-19] MEDS ORDERED: MAG HYDROX/AL HYDROX/SIMETH 30 ML LIQUID UDC PO PRN (19:45)
[2018-03-19] MEDS ORDERED: LOPERAMIDE HCL 2 MG CAPSULE PO PRN (19:45)
[2018-03-19] MEDS ORDERED: ACETAMINOPHEN 325 MG TABLET PO PRN (19:45)
[2018-03-19] MEDS ORDERED: FLEET ENEMA 133 ML BOTTLE RC PRN (19:45)
[2018-03-19] MEDS: risperiDONE 0.5 MG TABLET PO SCH (19:45)
[2018-03-19 20:05] VITALS: BP 117/74
[2018-03-19] MEDS: risperiDONE 1 MG TABLET PO SCH (20:32)
[2018-03-19] MEDS: FERROUS SULFATE 325 MG TABEC PO SCH (20:32)
[2018-03-19] MEDS: ATORVASTATIN 40 MG TABLET PO SCH (20:32)
[2018-03-19] MEDS: BENZTROPINE MESYLATE 0.5 MG TABLET PO SCH (20:36)
--- NOTE | 2018-03-19 20:36 | NUR ---
Medication Respiridal 0.5mg not given too close due to next dose at 2100.
[2018-03-20] MEDS: Z GUARD REMEDY PASTE 57 GM TUBE TOP SCH ×3 (01:02→21:27)
--- NOTE | 2018-03-20 05:28 | NUR ---
PATIENT SLEPT MOST OF THE NIGHT, NO SOB NO CHEST PAIN, PATIENT HAS LITTLE DISCOMFORT, BUT REFUSED PAIN MEDICATIONS, KEPT CLEAN AND DRY, TURN AND REPOSITION, CALL LIGHT WITHIN REACH.
[2018-03-20 06:38] VITALS: BP 110/62
[2018-03-20 06:38] LABS: BASOPHILS # (AUTO) 0.1 K/uL (0.0-8.0); BASOPHILS % (AUTO) 0.5 % (0.0-2.0); EOSINOPHILS # (AUTO) 0.1 K/uL (0.0-0.7); HEMATOCRIT 31.2 % (31.2-41.9); HEMOGLOBIN 10.6 g/dL (10.9-14.3); LYMPHOCYTES # (AUTO) 1.7 K/uL (20.0-40.0); LYMPHOCYTES % (AUTO) 15.9 % (20.5-51.5); MEAN CORPUSCULAR HEMOGLOBIN 30.2 uug (24.7-32.8); MEAN CORPUSCULAR HGB CONC 34 g/dL (32.3-35.6); MEAN CORPUSCULAR VOLUME 88.3 fL (75.5-95.3); MONOCYTES # (AUTO) 0.6 K/uL (2.0-10.0); MONOCYTES % (AUTO) 5.9 % (0.0-11.0); NEUTROPHILS % (AUTO) 76.7 % (38.5-71.5); PLATELET COUNT (AUTO) 496 K/uL (179-408); RED BLOOD CELL COUNT(AUTO) 3.53 MIL/uL (3.63-4.92); WHITE BLOOD COUNT (AUTO) 10.4 K/uL (3.8-11.8)
[2018-03-20 06:59] LABS: CARBON DIOXIDE 29 mmol/L (21-32); CHLORIDE 101 mmol/L (98-107); CHOLESTEROL 116 mg/dL (<200); CREATININE 0.5 mg/dL (0.6-1.3); GLUCOSE 110 mg/dL (74-106); HDL CHOLESTEROL 44 mg/dL (40-60); MAGNESIUM 2.1 mg/dL (1.8-2.4); PHOSPHOROUS 3.4 mg/dL (2.5-4.9); POTASSIUM 3.9 mmol/L (3.5-5.1); TRIGLYCERIDES 132 MG/DL (30-150); UREA NITROGEN, BLOOD 10 mg/dL (7-18)
--- NOTE | 2018-03-20 08:15 | NUR ---
PLACED PLACED ON FIRST STEP MATTRASS ORDERED TURNED AND MADE COMFORTABLE.TX IN PROGRESS AWAITING FOR REGISTERED DENTAL HYGIENIST TO EVALUATE PATIENTS WOUND RIGHT BUTTOCKS.TURNED AND REPOSITIONED Q2H HEELS FLOATED.
[2018-03-20] MEDS: risperiDONE 0.5 MG TABLET PO SCH ×2 (08:23→16:12)
[2018-03-20] MEDS: CYANOCOBALAMIN 1,000 MCG TABLET PO SCH (08:23)
[2018-03-20] MEDS: DOCUSATE SODIUM 100 MG CAPSULE PO SCH (08:23)
[2018-03-20] MEDS: CLOPIDOGREL 75 MG TABLET PO SCH (08:23)
[2018-03-20] MEDS: FERROUS SULFATE 325 MG TABEC PO SCH ×2 (08:24→16:12)
[2018-03-20] MEDS: SERTRALINE HCL 50 MG TABLET PO SCH (08:24)
[2018-03-20] MEDS: BENZTROPINE MESYLATE 0.5 MG TABLET PO SCH ×2 (08:24→16:12)
[2018-03-20] MEDS: CHOLECALCIFEROL 1,000 UNIT TABLET PO SCH (08:25)
[2018-03-20] MEDS ORDERED: Medication Not On Formulary EA (Cran/Vitc/Mannose/Inulin/Brom (Uti-Stat Liquid) 3,875 MG PO SCH (09:00)
[2018-03-20] MEDS ORDERED: Medication Not On Formulary EA (Cranberry Fruit Concentrate (Cranberry) 900 MG) PO SCH (09:00)
--- NOTE | 2018-03-20 10:00 | NUR ---
PATIENT STRAIGHT CATH FOR URINE SPECIMEN ORDERED AND SENT TO THE LAB.
--- NOTE | 2018-03-20 10:42 | NUR ---
DR NICHOLAS HERE TO SEE PATIENT WITH NEW ORDERS AND NOTED.
[2018-03-20 12:00] VITALS: BP 106/63
[2018-03-20 12:09] LABS: *BILIRUBIN,URIN NEGATIVE (NEGATIVE); *BLOOD, URINE 2+ (NEGATIVE); *CLARITY,URINE CLOUDY (CLEAR); *COLOR,URINE YELLOW (YELLOW); *KETONES,URINE NEGATIVE (NEGATIVE); *UROBILINOGEN,URINE 0.2 E.U./dl (NORMAL); LEUKOCYTE ESTERASE ,URINE 3+ (NEGATIVE); NITRITE, URINE POSITIVE (NEGATIVE); PH,URINE 6.5 (5.0-8.0); UGLUCOSE NEGATIVE (NEGATIVE)
[2018-03-20 12:30] LABS: BACTERIA,URINE MANY /HPF (NONE SEEN); SQUAMOUS EPITHELIAL CELL,UR FEW /HPF (NONE SEEN); WBC,URINE TNTC /HPF (0-3)
--- NOTE | 2018-03-20 13:19 | NUR ---
WOUND CARE CONSULT: PT PRESENTS WITH UNSTAGEABLE ULCER TO RT BUTTOCK, PRESENT ON ADMISSION. RECOMMEND SURGICAL CONSULT. RECOMMENDATIONS MADE FOR SKIN PROTECTION AND WOUND CARE. DISCUSSED WITH NURSING STAFF. CONCUR WITH CURRENT WOUND TREATMENT. WILL SEE PRN. PT ON FIRST STEP KAIDEN SANTILLAN MD IN AGREEMENT WITH PLAN OF CARE. Addendum: 03/20/18 at 1321 by AYALA NIEVES RN Amended: Links added.
[2018-03-20 16:07] VITALS: BP 100/64
--- NOTE | 2018-03-20 17:30 | NUR ---
AIDE STONE RUBBER FOR SURGERY HERE TO SEE PATIENT AND STATED THAT PATIENT WILL NEED DEBRIDEMENT ON HER RIGHT BUTTOCKS TOMORROW AND SHE ATTEMPTED TO CALL PATIENTS DAUGHTER BUT WAS UNABLE TO REACH HER LEFT HER A MESSAGE AWAITING FOR RETURN CALL.
[2018-03-20] MEDS ORDERED: SILVER NITRATE APPLICATOR STICK EACH TP PRN (19:00)
--- NOTE | 2018-03-20 19:25 | NUR ---
RECEIVED PT AWAKE, ALERT, ORIENTEDX1. PT PLEASANT WHEN APPROACHED. PT SHOWS NO SIGNS OF ACUTE DISTRESS. PT IV INTACT. CALL LIGHT WITHIN REACH. SAFETY AND COMFORT PROVIDED. WILL CONTINUE TO MONITOR.
[2018-03-20 19:42] VITALS: BP 98/61
[2018-03-20] MEDS: risperiDONE 1 MG TABLET PO SCH (21:27)
[2018-03-20] MEDS: ATORVASTATIN 40 MG TABLET PO SCH (21:27)
[2018-03-21 03:43] VITALS: BP 121/73
--- NOTE | 2018-03-21 06:31 | NUR ---
PT SLEPT THROUGHOUT THE SHIFT. PT RESPOND TO HER NAME WHEN CALLED.PT IV INTACT. PRESCRIBED MEDICATION GIVEN AND PT TOLERATED IT WELL. WILL TRY TO CALL HER DAUGHTER FOR THE INFORMED CONSENT.CALL LIGHT WITHIN REACH. PT TURNED AND REPOSITIONED.PT COOPERATIVE WITH CARE. SAFETY AND COMFORT PROVIDED.ALL NEEDS ARE MET. WILL ENDORSE ACCORDINGLY TO INCOMING NURSE FOR CONTINUITY OF CARE.
[2018-03-21] MEDS: CEFTRIAXONE 1 G in IV DEXTROSE 5% 50 ML IV SCH (09:07)
[2018-03-21] MEDS: risperiDONE 0.5 MG TABLET PO SCH ×2 (09:08→17:28)
[2018-03-21] MEDS: CYANOCOBALAMIN 1,000 MCG TABLET PO SCH (09:08)
[2018-03-21] MEDS: BENZTROPINE MESYLATE 0.5 MG TABLET PO SCH ×2 (09:08→17:28)
[2018-03-21] MEDS: DOCUSATE SODIUM 100 MG CAPSULE PO SCH (09:08)
[2018-03-21] MEDS: SERTRALINE HCL 50 MG TABLET PO SCH (09:09)
[2018-03-21] MEDS: CHOLECALCIFEROL 1,000 UNIT TABLET PO SCH (09:09)
[2018-03-21] MEDS: FERROUS SULFATE 325 MG TABEC PO SCH ×2 (09:09→17:28)
[2018-03-21] MEDS: CLOPIDOGREL 75 MG TABLET PO SCH (09:09)
[2018-03-21] MEDS: Z GUARD REMEDY PASTE 57 GM TUBE TOP SCH ×2 (09:27→20:08)
[2018-03-21 09:28] LABS: BASOPHILS % (AUTO) 0.4 % (0.0-2.0); EOSINOPHILS # (AUTO) 0.1 K/uL (0.0-0.7); EOSINOPHILS % (AUTO) 0.5 % (0.0-7.0); HEMATOCRIT 29.6 % (31.2-41.9); HEMOGLOBIN 10.4 g/dL (10.9-14.3); LYMPHOCYTES # (AUTO) 1.5 K/uL (20.0-40.0); LYMPHOCYTES % (AUTO) 14.8 % (20.5-51.5); MEAN CORPUSCULAR HEMOGLOBIN 30.8 uug (24.7-32.8); MEAN CORPUSCULAR HGB CONC 35 g/dL (32.3-35.6); MEAN CORPUSCULAR VOLUME 87.5 fL (75.5-95.3); MONOCYTES # (AUTO) 0.6 K/uL (2.0-10.0); NEUTROPHILS # (AUTO) 8.1 K/uL (1.8-8.9); NEUTROPHILS % (AUTO) 78.3 % (38.5-71.5); PLATELET COUNT (AUTO) 508 K/uL (179-408); RED BLOOD CELL COUNT(AUTO) 3.38 MIL/uL (3.63-4.92); WHITE BLOOD COUNT (AUTO) 10.3 K/uL (3.8-11.8)
[2018-03-21 09:54] LABS: IRON, SERUM 17 ug/dL (50-175)
[2018-03-21 10:10] LABS: FERRITIN 182 ng/mL (8-252)
[2018-03-21 12:00] VITALS: BP 87/60
--- NOTE | 2018-03-21 12:51 | NUR ---
Patient's BP noted to be low 88/57, HR 105, she remains awake, alert, not in any form of acute distress. She denies any pain or discomfort at this time. Notified Dr. Valerio and ordered 500ml NS IV bolus.
[2018-03-21] MEDS ORDERED: IV NORMAL SALINE 500 ML IV ONE (13:00)
--- NOTE | 2018-03-21 14:00 | NUR ---
Patient's BP 97/58 HR 99, she remains awake, verbally responsive, not in any form of distress, no complain of any discomfort.
[2018-03-21 16:00] VITALS: BP 100/67
--- NOTE | 2018-03-21 19:10 | NUR ---
RECEIVED PT AWAKE, ALERT AND ORIENTEDX1. PT RESPOND TO HER NAME. PT SHOWS NO SIGNS OF DISTRESS. IV INTACT. SAFETY AND COMFORT PROVIDED. WILL CONTINUE TO MONITOR.
[2018-03-21 19:26] VITALS: BP 102/60
[2018-03-21] MEDS: risperiDONE 1 MG TABLET PO SCH (20:06)
[2018-03-21] MEDS: ATORVASTATIN 40 MG TABLET PO SCH (20:07)
[2018-03-22 03:24] VITALS: BP 92/60
--- NOTE | 2018-03-22 06:38 | NUR ---
PT SLEPT THROUGHOUT THE SHIFT. PT SHOWS NO SIGNS OF ACUTE DISTRESS. IV INTACT . PRESCRIBED MEDICATION GIVEN AND PT TOLERATED IT WELL. PT TURNED AND REPOSITIONED. PT COOPERATIVE WITH CARE.SAFETY AND COMFORT PROVIDED. WILL ENDORSE ACCORDINGLY TO INCOMING NURSE FOR CONTINUITY OF CARE.
[2018-03-22 07:37] LABS: BASOPHILS % (AUTO) 0.4 % (0.0-2.0); EOSINOPHILS % (AUTO) 0.4 % (0.0-7.0); HEMATOCRIT 28.3 % (31.2-41.9); HEMOGLOBIN 9.7 g/dL (10.9-14.3); LYMPHOCYTES # (AUTO) 2.5 K/uL (20.0-40.0); LYMPHOCYTES % (AUTO) 19.1 % (20.5-51.5); MEAN CORPUSCULAR HEMOGLOBIN 30.2 uug (24.7-32.8); MEAN CORPUSCULAR HGB CONC 34 g/dL (32.3-35.6); MEAN CORPUSCULAR VOLUME 87.9 fL (75.5-95.3); MONOCYTES % (AUTO) 7.3 % (0.0-11.0); NEUTROPHILS # (AUTO) 9.7 K/uL (1.8-8.9); NEUTROPHILS % (AUTO) 72.8 % (38.5-71.5); PLATELET COUNT (AUTO) 463 K/uL (179-408); RED BLOOD CELL COUNT(AUTO) 3.22 MIL/uL (3.63-4.92); WHITE BLOOD COUNT (AUTO) 13.3 K/uL (3.8-11.8)
[2018-03-22 07:46] LABS: ALANINE AMINOTRANSFERASE 11 U/L (14-59); ALKALINE PHOSPHATASE 94 U/L (50-136); ASPARTATE AMINOTRANSFERASE 7 U/L (15-37); BILIRUBIN,TOTAL 0.2 mg/dL (0.2-1.0); CARBON DIOXIDE 28 mmol/L (21-32); CHLORIDE 100 mmol/L (98-107); CREATININE 0.7 mg/dL (0.6-1.3); GLUCOSE 119 mg/dL (74-106); PHOSPHOROUS 3.8 mg/dL (2.5-4.9); TOTAL PROTEIN, SERUM 7.5 g/dL (6.4-8.2); UREA NITROGEN, BLOOD 13 mg/dL (7-18)
[2018-03-22 08:00] VITALS: BP 96/58
[2018-03-22] MEDS: risperiDONE 0.5 MG TABLET PO SCH ×2 (09:02→16:01)
[2018-03-22] MEDS: CLOPIDOGREL 75 MG TABLET PO SCH (09:02)
[2018-03-22] MEDS: BENZTROPINE MESYLATE 0.5 MG TABLET PO SCH ×2 (09:02→16:01)
[2018-03-22] MEDS: CYANOCOBALAMIN 1,000 MCG TABLET PO SCH (09:02)
[2018-03-22] MEDS: DOCUSATE SODIUM 100 MG CAPSULE PO SCH (09:03)
[2018-03-22] MEDS: SERTRALINE HCL 50 MG TABLET PO SCH (09:03)
[2018-03-22] MEDS: FERROUS SULFATE 325 MG TABEC PO SCH ×2 (09:03→16:01)
[2018-03-22] MEDS: CHOLECALCIFEROL 1,000 UNIT TABLET PO SCH (09:03)
[2018-03-22] MEDS: Z GUARD REMEDY PASTE 57 GM TUBE TOP SCH ×2 (09:12→21:41)
[2018-03-22] MEDS: CEFTRIAXONE 1 G in IV DEXTROSE 5% 50 ML IV SCH (09:13)
--- NOTE | 2018-03-22 10:00 | NUR ---
Received nursing report from restaurant shift supervisor nurse. Pt A/OX1, responds to verbal and tactile stimuli. No SOB or acute distress on RA Sat 94%. Administered all due medications including IV ABX as ordered and tolerated well, no ASE noted. Awaiting for stool sample, no BM at this time. On air mattress for pressure distribution/skin mgt. SCD applied to bilateral lower extremity for VTE PPX. LFA PIV intact and patent. Fall precautions in place. Assisted pt. with morning ADL's. No new skin condition noted. Bed in locked and lowest position with side rails up x2, alarm on. Call light within reach. Will continue to monitor.
[2018-03-22 12:00] VITALS: BP 89/62
[2018-03-22 16:00] VITALS: BP 105/64
--- NOTE | 2018-03-22 18:15 | NUR ---
End of shift: No significant change during this shift. All due medications administered as ordered and tolerated well. Encouraged PO fluid intake as tolerated. Lt. hand PIV intact and patent. Pt. tolerated procedure well. Received IV abx as ordered with no ASE. No new skin condition noted. Pt. turned and reposition for comfort q2h. SCD on for VTE ppx, tolerating well. Unable to obtain stool for sample during this shift, no output. 2X upper side rails up as enabler for bed positioning and mobility. Call light and all frequently used items within pt. reach. Will endorse to oncoming shift accordingly.
[2018-03-22 19:34] VITALS: BP 96/61
--- NOTE | 2018-03-22 19:35 | NUR ---
RECEIVED PATIENT IN BED AWAKE BUT FORGETFULL, NO SOB NO CHEST PAIN, TURN AND REPOSITION, KEPT CLEAN AND DRY, CALL LIGHT WITHIN REACH.
--- NOTE | 2018-03-22 21:30 | NUR ---
PATIENT TREATMENT DONE ON BUTTOCK WOUND, NO COMPLAIN OF PAIN AT THIS TIME, KEPT COMFORTABLE, CONT TO MONITOR.
[2018-03-22] MEDS: risperiDONE 1 MG TABLET PO SCH (21:41)
[2018-03-22] MEDS: ATORVASTATIN 40 MG TABLET PO SCH (21:41)
[2018-03-22] MEDS: MEROPENEM 1 G in IV NORMAL SALINE 100 ML IV SCH (21:44)
--- NOTE | 2018-03-23 | NUR ---
PT RESTING QUIETLY IN BED, NO ACUTE DISTRESS NOTED.,IV SITE FREE FROM SSM OF INFILTRATION,FOR DEBRIDEMENT OF RIGHT BUTTOCKS WOUND IN AM.REPOSITIONED FOR COMFOERT. SAFETY PRECAUTIONS OBSERVED AND MAINTAINED.STILL ON ANTIBIOTIC- MERREM
[2018-03-23 03:33] VITALS: BP 104/66
[2018-03-23] MEDS ORDERED: MEROPENEM 1 G VIAL IV ONE (05:07)
[2018-03-23] MEDS: MEROPENEM 1 G in IV NORMAL SALINE 100 ML IV SCH ×3 (05:20→21:06)
[2018-03-23] MEDS ORDERED: MERO1VIA IV (07:50)
[2018-03-23] MEDS: Z GUARD REMEDY PASTE 57 GM TUBE TOP SCH ×2 (08:24→21:06)
[2018-03-23] MEDS: FERROUS SULFATE 325 MG TABEC PO SCH ×2 (08:25→17:22)
[2018-03-23] MEDS: SERTRALINE HCL 50 MG TABLET PO SCH (08:25)
[2018-03-23] MEDS: CHOLECALCIFEROL 1,000 UNIT TABLET PO SCH (08:25)
[2018-03-23] MEDS: BENZTROPINE MESYLATE 0.5 MG TABLET PO SCH ×2 (08:25→17:22)
[2018-03-23] MEDS: CLOPIDOGREL 75 MG TABLET PO SCH (08:25)
[2018-03-23] MEDS: risperiDONE 0.5 MG TABLET PO SCH ×2 (08:25→17:22)
[2018-03-23] MEDS: CYANOCOBALAMIN 1,000 MCG TABLET PO SCH (08:26)
[2018-03-23] MEDS: DOCUSATE SODIUM 100 MG CAPSULE PO SCH (08:41)
[2018-03-23 11:24] VITALS: BP 104/74
[2018-03-23 15:19] VITALS: BP 95/60
--- NOTE | 2018-03-23 18:28 | NUR ---
patient has been resting through out the shift. patient denies any pain or discomfort at this time. patient is able to verbalize needs. patient is on atbx therapy with vital signs within normal limits. patient is compliant with medication administration. patient received wound treatment to right buttock with saline flush, hydrogel and mepilex. will continue with physician medical regimen and will endorse to police shift commander the POC. will continue monitor.
[2018-03-23 20:23] VITALS: BP 84/52
--- NOTE | 2018-03-23 20:25 | NUR ---
SAW PT , NOTED BP LOW, PT IS AWAKE ,ALERT, DENIES ANY DISCOMFORT, OR DIZZINESS, PT ASYMPTOMATIC WITH LOW BP ,WILL CONTINUE TO MONITOR.
[2018-03-23] MEDS: risperiDONE 1 MG TABLET PO SCH (21:06)
[2018-03-23] MEDS: ATORVASTATIN 40 MG TABLET PO SCH (21:06)
--- NOTE | 2018-03-23 23:05 | NUR ---
HANDS OFF REPORT RECEIVED . PT STABLE AND IN NO ACUTE DISTRESS. IV INTACT. SAFETY AND COMFORT PROVIDED. WILL CONTINUE TO MONITOR.
[2018-03-24 04:24] VITALS: BP 101/56
[2018-03-24] MEDS: MEROPENEM 1 G in IV NORMAL SALINE 100 ML IV SCH ×3 (05:02→22:15)
--- NOTE | 2018-03-24 06:35 | NUR ---
PT SLEPT THROUGHOUT THE SHIFT. PT SHOWS NO SIGNS OF ACUTE DISTRESS.PRESCRIBED MEDICATION GIVEN AND PT TOLERATED IT WELL. PT IV INTACT. PRUNE JUICE GIVEN FOR DEFECATION.SAFETY AND COMFORT PROVIDED. CALL LIGHT WITHIN REACH. WILL ENDORSE ACCORDINGLY TO INCOMING NURSE FOR CONTINUITY OF CARE.
--- NOTE | 2018-03-24 08:00 | NUR ---
AWAKE CONFUSED FORGETFUL ON ASPIRATION AND FALL PRECAUTION BED ALARM ON AND CALL LIGHT IN REACH
[2018-03-24] MEDS: DOCUSATE SODIUM 100 MG CAPSULE PO SCH (08:39)
[2018-03-24] MEDS: CLOPIDOGREL 75 MG TABLET PO SCH (08:39)
[2018-03-24] MEDS: risperiDONE 0.5 MG TABLET PO SCH ×2 (08:39→16:51)
[2018-03-24] MEDS: ACETAMINOPHEN 325 MG TABLET PO PRN (08:39)
[2018-03-24] MEDS: FERROUS SULFATE 325 MG TABEC PO SCH ×2 (08:39→16:51)
[2018-03-24] MEDS: CYANOCOBALAMIN 1,000 MCG TABLET PO SCH (08:40)
[2018-03-24] MEDS: CHOLECALCIFEROL 1,000 UNIT TABLET PO SCH (08:40)
[2018-03-24] MEDS: SERTRALINE HCL 50 MG TABLET PO SCH (08:40)
[2018-03-24] MEDS: Z GUARD REMEDY PASTE 57 GM TUBE TOP SCH ×2 (08:40→20:40)
[2018-03-24] MEDS: BENZTROPINE MESYLATE 0.5 MG TABLET PO SCH ×2 (08:40→16:51)
--- NOTE | 2018-03-24 11:00 | NUR ---
VS TAKEN BP WAS LOW83/58 HR WAS [address] BORGES WAS INFORM NEW ORDER FOR IVF BOLUS 1000ML OF NS GIVEN
[2018-03-24 11:15] VITALS: BP 83/58
[2018-03-24] MEDS ORDERED: IV NORMAL SALINE 1000 ML BAG IV ONE (11:30)
[2018-03-24] MEDS ORDERED: IV NS 1000 ML 1,000 ML IV ONE (12:00)
[2018-03-24 13:00] VITALS: BP 104/78
--- NOTE | 2018-03-24 13:00 | NUR ---
IV INFILTRATE CHANGE TO #20 LEFT HAND
--- NOTE | 2018-03-24 14:00 | NUR ---
RESTING WELL NO RESPIRATORY DISTRESS OR PAIN CLOSED OBSERVATION
[2018-03-24] MEDS: SOD FERRIC GLUC COMPLX/SUCROSE 125 MG in IV NORMAL SALINE 100 ML IV SCH (14:53)
[2018-03-24 14:56] VITALS: BP 88/53
--- NOTE | 2018-03-24 18:00 | NUR ---
STRAIGHT CATH AND SENT URINE TO LAB ORDER RESTING WELL NO RESPIRATORY DISTRESS ,PAIN UNDER CONTROL SAFETY MEASURE PROVIDED BED ALARM ON AND CALL LIGHT IN REACH
[2018-03-24 19:00] VITALS: BP 114/95
--- NOTE | 2018-03-24 19:30 | NUR ---
Received patient awake in bed, not in any form of distress. Patient is confused but responds to her name called. With IV access at left hand, 20g, intact. Noted with discharge plans already for Monday. Bed in low position, locked, side rails up x 2, call light within reach. Noise and light subdued. Will continue to monitor.
[2018-03-24] MEDS: ATORVASTATIN 40 MG TABLET PO SCH (20:35)
[2018-03-24] MEDS: risperiDONE 1 MG TABLET PO SCH (20:35)
[2018-03-25 04:00] VITALS: BP 104/71
[2018-03-25] MEDS: MEROPENEM 1 G in IV NORMAL SALINE 100 ML IV SCH ×3 (05:35→21:26)
--- NOTE | 2018-03-25 06:45 | NUR ---
Patient asleep in bed, not in any form of distress. Patient is confused but responds to her name called. With IV access at left hand, 20g, intact. Wound dressing changed. Noted bowel movement only a smear, not enough to send for testing.
[2018-03-25 07:15] LABS: BASOPHILS % (AUTO) 0.3 % (0.0-2.0); EOSINOPHILS # (AUTO) 0.1 K/uL (0.0-0.7); EOSINOPHILS % (AUTO) 0.6 % (0.0-7.0); HEMATOCRIT 30.2 % (31.2-41.9); HEMOGLOBIN 9.9 g/dL (10.9-14.3); LYMPHOCYTES # (AUTO) 2.1 K/uL (20.0-40.0); LYMPHOCYTES % (AUTO) 17.6 % (20.5-51.5); MEAN CORPUSCULAR HEMOGLOBIN 28.5 uug (24.7-32.8); MEAN CORPUSCULAR HGB CONC 33 g/dL (32.3-35.6); MEAN CORPUSCULAR VOLUME 87.2 fL (75.5-95.3); MONOCYTES # (AUTO) 0.9 K/uL (2.0-10.0); MONOCYTES % (AUTO) 7.8 % (0.0-11.0); NEUTROPHILS # (AUTO) 8.9 K/uL (1.8-8.9); NEUTROPHILS % (AUTO) 73.7 % (38.5-71.5); PLATELET COUNT (AUTO) 441 K/uL (179-408); RED BLOOD CELL COUNT(AUTO) 3.46 MIL/uL (3.63-4.92); WHITE BLOOD COUNT (AUTO) 12.1 K/uL (3.8-11.8)
[2018-03-25 07:39] LABS: CARBON DIOXIDE 30 mmol/L (21-32); CHLORIDE 102 mmol/L (98-107); CREATININE 0.7 mg/dL (0.6-1.3); GLUCOSE 108 mg/dL (74-106); MAGNESIUM 2.2 mg/dL (1.8-2.4); UREA NITROGEN, BLOOD 14 mg/dL (7-18)
--- NOTE | 2018-03-25 08:00 | NUR ---
RESTING WELL IN BED NO S/S OF RESPIRATORY DISTRESS NO PAIN ON ASPIRATION /FALL PRECAUTION BED ALARM ON AND CALL LIGHT IN REACH
[2018-03-25] MEDS: ACETAMINOPHEN 325 MG TABLET PO PRN (08:22)
[2018-03-25] MEDS: risperiDONE 0.5 MG TABLET PO SCH ×2 (08:23→17:27)
[2018-03-25] MEDS: CYANOCOBALAMIN 1,000 MCG TABLET PO SCH (08:23)
[2018-03-25] MEDS: FERROUS SULFATE 325 MG TABEC PO SCH ×2 (08:23→17:26)
[2018-03-25] MEDS: CLOPIDOGREL 75 MG TABLET PO SCH (08:23)
[2018-03-25] MEDS: BENZTROPINE MESYLATE 0.5 MG TABLET PO SCH ×2 (08:23→17:27)
[2018-03-25] MEDS: CHOLECALCIFEROL 1,000 UNIT TABLET PO SCH (08:23)
[2018-03-25] MEDS: Z GUARD REMEDY PASTE 57 GM TUBE TOP SCH ×2 (08:23→20:05)
[2018-03-25] MEDS: SERTRALINE HCL 50 MG TABLET PO SCH (08:23)
[2018-03-25] MEDS: DOCUSATE SODIUM 100 MG CAPSULE PO SCH (08:23)
--- NOTE | 2018-03-25 08:30 | NUR ---
EAT BREAKFAST WELL PO FLD CANDY MOD AMT REPOSITION Q2 HR DSG AT RT BUTTOCK INTACT MEPILEX
[2018-03-25 11:30] VITALS: BP 108/58
--- NOTE | 2018-03-25 11:30 | NUR ---
DR BORGES SEEN PATIENT AND LAB RESULT THIS AM NO NEW ORDER D/C PLANNING BY TOMORROW
--- NOTE | 2018-03-25 13:30 | NUR ---
ST CATH X1 AND URINE SENT TO LAB ORDER
[2018-03-25] MEDS: SOD FERRIC GLUC COMPLX/SUCROSE 125 MG in IV NORMAL SALINE 100 ML IV SCH (13:35)
[2018-03-25 15:28] LABS: *CREATININE,URINE 60.8 mg/dL (30-125); *URINE TOTAL PROTEIN RANDOM 46.3 mg/dL (<150/24HR)
[2018-03-25 15:34] VITALS: BP 96/64
[2018-03-25 17:19] LABS: *OCCULT BLOOD STOOL POSITIVE (NEGATIVE)
--- NOTE | 2018-03-25 17:30 | NUR ---
STABLE HEMODYNAMIC STATUS ,NO RESPIRATORY DISTRESS ,PAIN UNDER CONTROL SAFETY MEASURE PROVIDED CALL LIGHT IN REACH AND BED ALARM ON
--- NOTE | 2018-03-25 19:30 | NUR ---
RECEIVED PATIENT IN BED AWAKE BUT FORGETFUL, NO SOB NO CHEST PAIN NOTED, NO COMPLAIN OF PAIN, KEPT CLEAN AND DRY, TURN AND REPOSITION, CONT TO MONITOR.
[2018-03-25] MEDS: ATORVASTATIN 40 MG TABLET PO SCH (20:05)
[2018-03-25] MEDS: risperiDONE 1 MG TABLET PO SCH (20:05)
[2018-03-25 20:31] VITALS: BP 113/65
[2018-03-26] MEDS: MEROPENEM 1 G in IV NORMAL SALINE 100 ML IV SCH ×3 (05:04→21:36)
--- NOTE | 2018-03-26 06:18 | NUR ---
PATIENT SLEPT WELL, NO SOB NO CHEST PAIN NOTED, NO COMPLAIN OF PAIN, TREATMENT DONE ON RIGHT BUTTOCK, RENDERED GOOD BE CARE. TURN AND REPOSITION EVERY TWO, KEPT CLEAN AND DRY. VOIDING WELL, WITH BM TODAY. CONT TO MONITOR.
[2018-03-26 06:41] LABS: BASOPHILS % (AUTO) 0.3 % (0.0-2.0); EOSINOPHILS # (AUTO) 0.1 K/uL (0.0-0.7); EOSINOPHILS % (AUTO) 0.7 % (0.0-7.0); HEMATOCRIT 30.1 % (31.2-41.9); HEMOGLOBIN 9.8 g/dL (10.9-14.3); LYMPHOCYTES # (AUTO) 2.3 K/uL (20.0-40.0); MEAN CORPUSCULAR HEMOGLOBIN 28.4 uug (24.7-32.8); MEAN CORPUSCULAR HGB CONC 32 g/dL (32.3-35.6); MEAN CORPUSCULAR VOLUME 87.6 fL (75.5-95.3); MONOCYTES % (AUTO) 7.9 % (0.0-11.0); NEUTROPHILS # (AUTO) 9.3 K/uL (1.8-8.9); NEUTROPHILS % (AUTO) 73.1 % (38.5-71.5); PLATELET COUNT (AUTO) 425 K/uL (179-408); RED BLOOD CELL COUNT(AUTO) 3.44 MIL/uL (3.63-4.92); WHITE BLOOD COUNT (AUTO) 12.7 K/uL (3.8-11.8)
[2018-03-26 06:57] LABS: ALANINE AMINOTRANSFERASE 19 U/L (14-59); ALKALINE PHOSPHATASE 94 U/L (50-136); ASPARTATE AMINOTRANSFERASE 11 U/L (15-37); BILIRUBIN,TOTAL 0.2 mg/dL (0.2-1.0); CARBON DIOXIDE 29 mmol/L (21-32); CHLORIDE 102 mmol/L (98-107); CREATININE 0.9 mg/dL (0.6-1.3); GLUCOSE 113 mg/dL (74-106); MAGNESIUM 2.4 mg/dL (1.8-2.4); PHOSPHOROUS 2.9 mg/dL (2.5-4.9); TOTAL PROTEIN, SERUM 7.9 g/dL (6.4-8.2); UREA NITROGEN, BLOOD 22 mg/dL (7-18)
[2018-03-26] MEDS: CHOLECALCIFEROL 1,000 UNIT TABLET PO SCH (08:23)
[2018-03-26] MEDS: CYANOCOBALAMIN 1,000 MCG TABLET PO SCH (08:23)
[2018-03-26] MEDS: SERTRALINE HCL 50 MG TABLET PO SCH (08:23)
[2018-03-26] MEDS: CLOPIDOGREL 75 MG TABLET PO SCH (08:23)
[2018-03-26] MEDS: BENZTROPINE MESYLATE 0.5 MG TABLET PO SCH ×2 (08:23→16:31)
[2018-03-26] MEDS: FERROUS SULFATE 325 MG TABEC PO SCH ×2 (08:23→16:31)
[2018-03-26] MEDS: DOCUSATE SODIUM 100 MG CAPSULE PO SCH (08:23)
[2018-03-26] MEDS: risperiDONE 0.5 MG TABLET PO SCH ×2 (08:23→16:31)
[2018-03-26] MEDS: Z GUARD REMEDY PASTE 57 GM TUBE TOP SCH ×2 (08:55→21:05)
[2018-03-26 11:02] VITALS: BP 130/67
[2018-03-26] MEDS: SOD FERRIC GLUC COMPLX/SUCROSE 125 MG in IV NORMAL SALINE 100 ML IV SCH (13:17)
[2018-03-26 15:02] VITALS: BP 102/78
--- NOTE | 2018-03-26 18:14 | NUR ---
patient is alert and oriented x1. Patient has no change in mental status. Patient has been sleeping through out the shift. Patient is compliant with medical regimen and treatment. Patient received wound treatment to right buttock today. Patient denies any pain or discomfort at this time. will continue to monitor and endorse plan of care to table games shift manager nurse.
--- NOTE | 2018-03-26 19:00 | NUR ---
RECEIVED IN BED AWAKE, VERBALLY RESPONSIVE, NO SOB NO CHEST PAIN NOTED, NO COMPLAIN OF PAIN, CONT ON CONTACT ISOLATION, OBSERVED GOOD HANDWASHING, TURN AND REPOSITION EVERY TWO HOURS, TX CONT ON R BUTTOCK WOUND. CONT TO MONITOR.
[2018-03-26 19:55] VITALS: BP 103/63
[2018-03-26] MEDS: risperiDONE 1 MG TABLET PO SCH (21:04)
[2018-03-26] MEDS: ATORVASTATIN 40 MG TABLET PO SCH (21:04)
[2018-03-27 04:38] VITALS: BP 100/71
[2018-03-27] MEDS: MEROPENEM 1 G in IV NORMAL SALINE 100 ML IV SCH (05:07)
--- NOTE | 2018-03-27 05:51 | NUR ---
PATIENT SLEPT MOST OF THE NIGHT, NO SOB NO CHEST PAIN, NO COMPLAIN OF PAIN, HOB ELEVATED, CONT ABX FOR UTI, WITH ADVERSE REACTION NOTED, REMAIN IN CONTACT ISOLATION ESBL URINE. CONT TO MONITOR.
[2018-03-27] MEDS: FERROUS SULFATE 325 MG TABEC PO SCH (08:01)
[2018-03-27] MEDS: CYANOCOBALAMIN 1,000 MCG TABLET PO SCH (08:01)
[2018-03-27] MEDS: CLOPIDOGREL 75 MG TABLET PO SCH (08:01)
[2018-03-27] MEDS: DOCUSATE SODIUM 100 MG CAPSULE PO SCH (08:01)
[2018-03-27] MEDS: risperiDONE 0.5 MG TABLET PO SCH (08:01)
[2018-03-27] MEDS: BENZTROPINE MESYLATE 0.5 MG TABLET PO SCH (08:01)
[2018-03-27] MEDS: SERTRALINE HCL 50 MG TABLET PO SCH (08:02)
[2018-03-27] MEDS: CHOLECALCIFEROL 1,000 UNIT TABLET PO SCH (08:02)
[2018-03-27] MEDS: Z GUARD REMEDY PASTE 57 GM TUBE TOP SCH (08:04)
--- NOTE | 2018-03-27 09:48 | NUR ---
CALLED [facility] WHERE PATIENT WILL BE DISCHARGED TO AT 1030 VIA AMBULANCE. REPORT GIVEN TO CORWIN RODRIGEZ. PATIENT IS STABLE. PLAN IS TO CONTINUE ANTIBIOTICS AND TREATMENT CARE. PATIENT WILL BE GOING WITH IV ACCESS ON LEFT HAND 20G.
[2018-03-27] MEDS ORDERED: IV NORMAL SALINE 250 ML IV ONE (11:00)
[2018-03-27 11:40] VITALS: BP 93/58
== END 2018-03-27 11:20 | DRG 853 ==
LOC: ER 10:51 → MED 15:08
PROVIDERS: ADMIT Internal Medicine; ATTEND Internal Medicine
PROC: 0JB90ZZ Excision of Buttock Subcutaneous Tissue and Fascia, Open Approach (ICD-10-PCS; principal; 2018-03-19)
DX: A41.9 Sepsis, unspecified organism (principal); L89.313 Pressure ulcer of right buttock, stage 3; G93.41 Metabolic encephalopathy; N39.0 Urinary tract infection, site not specified; E46 Unspecified protein-calorie malnutrition; E87.1 Hypo-osmolality and hyponatremia; F20.0 Paranoid schizophrenia; R65.20 Severe sepsis without septic shock; B96.20 Unspecified Escherichia coli [E. coli] as the cause of diseases classified elsewhere; Z16.12 Extended spectrum beta lactamase (ESBL) resistance; Z68.22 Body mass index [BMI] 22.0-22.9, adult; Z79.82 Long term (current) use of aspirin; D47.3 Essential (hemorrhagic) thrombocythemia; J44.9 Chronic obstructive pulmonary disease, unspecified; K40.90 Unilateral inguinal hernia, without obstruction or gangrene, not specified as recurrent; F39 Unspecified mood [affective] disorder; G30.9 Alzheimer's disease, unspecified; F02.80 Dementia in other diseases classified elsewhere, unspecified severity, without behavioral disturbance, psychotic disturbance, mood disturbance, and anxiety; I25.10 Atherosclerotic heart disease of native coronary artery without angina pectoris; I11.9 Hypertensive heart disease without heart failure; E78.5 Hyperlipidemia, unspecified; Z90.710 Acquired absence of both cervix and uterus; Z86.73 Personal history of transient ischemic attack (TIA), and cerebral infarction without residual deficits; Z79.899 Other long term (current) drug therapy; I70.0 Atherosclerosis of aorta; E61.1 Iron deficiency
CPT/HCPCS: 36415; 70030-TC; 71045; 82747; 83550; 83605; 83690; 83735; 84100; 84156; 84300; 85014; 85025; 85730; 86850; 86900; 86901; 87040; 87077; 87086; 93005; A4663; C1758; G0378; J0696; J2185; J2916; J3490; J7030; J7040; J7050; J7060

== ENCOUNTER 2018-07-16 11:02 | Inpatient (IN) | payer MEDICARE, OTHER ==
[2018-07-16] VITALS (26 sets, daily range): BP systolic 79–141; BP diastolic 42–79
[~2018-07-16] VITALS: Ht 149.9 cm; Wt 53.6 kg
[~2018-07-16 11:02] MED LIST changes: -ASPI81TA31 PO; -ATOR20TA PO; +ATOR40TA PO; -CEPH500C2 PO; +CLOP75TA15 PO; -CRAN1TAB3 PO; +CRAN450C PO; +MERO1VIA IV; +NA P133E RC; -PROP10DR4 OP
[2018-07-16 11:35] LABS: BASOPHILS % (AUTO) 0.3 % (0.0-2.0); EOSINOPHILS % (AUTO) 0.1 % (0.0-7.0); HEMATOCRIT 35.8 % (31.2-41.9); HEMOGLOBIN 12.1 g/dL (10.9-14.3); LYMPHOCYTES # (AUTO) 2.2 K/uL (20.0-40.0); LYMPHOCYTES % (AUTO) 20.6 % (20.5-51.5); MEAN CORPUSCULAR HEMOGLOBIN 31.9 uug (24.7-32.8); MEAN CORPUSCULAR HGB CONC 34 g/dL (32.3-35.6); MEAN CORPUSCULAR VOLUME 94.6 fL (75.5-95.3); MONOCYTES # (AUTO) 0.6 K/uL (2.0-10.0); MONOCYTES % (AUTO) 5.8 % (0.0-11.0); NEUTROPHILS # (AUTO) 7.7 K/uL (1.8-8.9); NEUTROPHILS % (AUTO) 73.2 % (38.5-71.5); PLATELET COUNT (AUTO) 430 K/uL (179-408); RED BLOOD CELL COUNT(AUTO) 3.78 MIL/uL (3.63-4.92); WHITE BLOOD COUNT (AUTO) 10.5 K/uL (3.8-11.8)
--- NOTE | 2018-07-16 11:41 | NUR ---
Pt out of ER for CT.
[2018-07-16 11:42] LABS: CARBON DIOXIDE 28 mmol/L (21-32); CHLORIDE 103 mmol/L (98-107); CREATININE 0.8 mg/dL (0.6-1.3); GLUCOSE 81 mg/dL (74-106); POTASSIUM 4.4 mmol/L (3.5-5.1); UREA NITROGEN, BLOOD 17 mg/dL (7-18)
[2018-07-16] MEDS ORDERED: ASCO500T10 PO (11:42)
[2018-07-16] MEDS ORDERED: MULT-213 PO (11:42)
[2018-07-16] MEDS ORDERED: IPRA3AMP23 IH (11:42)
[2018-07-16] MEDS ORDERED: ACET650S24 RC (11:42)
[2018-07-16] MEDS ORDERED: ZINC220C8 PO (11:42)
[2018-07-16] MEDS ORDERED: AMIN30LI2 PO (11:42)
[2018-07-16 11:43] LABS: *BILIRUBIN,URIN NEGATIVE (NEGATIVE); *BLOOD, URINE 2+ (NEGATIVE); *CLARITY,URINE CLOUDY (CLEAR); *COLOR,URINE YELLOW (YELLOW); *KETONES,URINE NEGATIVE (NEGATIVE); LEUKOCYTE ESTERASE ,URINE 3+ (NEGATIVE); NITRITE, URINE POSITIVE (NEGATIVE); PH,URINE 6.5 (5.0-8.0); UGLUCOSE NEGATIVE (NEGATIVE)
[2018-07-16 11:48] LABS: ALANINE AMINOTRANSFERASE 16 U/L (14-59); ALKALINE PHOSPHATASE 183 U/L (50-136); ASPARTATE AMINOTRANSFERASE 11 U/L (15-37); BILIRUBIN,DIRECT 0.1 mg/dL (0.0-0.2); BILIRUBIN,TOTAL 0.4 mg/dL (0.2-1.0); LIPASE 90 U/L (73-393); TOTAL PROTEIN, SERUM 7.1 g/dL (6.4-8.2)
[2018-07-16 11:50] LABS: WBC,URINE TNTC /HPF (0-3)
[2018-07-16 11:51] LABS: BACTERIA,URINE MANY /HPF (NONE SEEN); SQUAMOUS EPITHELIAL CELL,UR FEW /HPF (NONE SEEN); TRANSITIONAL EPI CELLS,URINE FEW /LPF (NONE SEEN)
[2018-07-16] MEDS ORDERED: CEFTRIAXONE 1 G VIAL ONE (12:13)
[2018-07-16] MEDS ORDERED: CEFTRIAXONE 1 G in IV DEXTROSE 5% 50 ML IV ONE (12:15)
--- NOTE | 2018-07-16 12:15 | NUR ---
Call placed to [facility] for transportation back to [facility]. Trip #[id number], ETA = 45min (1250pm).
--- NOTE | 2018-07-16 12:50 | NUR ---
KRUNAL HAGER spoke to Dr Valerio, pt's PMD.
--- NOTE | 2018-07-16 12:55 | NUR ---
Pt became hypotensive, made aware.
[2018-07-16] MEDS ORDERED: IV NORMAL SALINE 500 ML BAG IV ONE (13:15)
[2018-07-16] MEDS ORDERED: MAG HYDROX/AL HYDROX/SIMETH 30 ML LIQUID UDC PO PRN (13:30)
[2018-07-16] MEDS ORDERED: FLEET ENEMA 133 ML BOTTLE RC PRN (13:30)
[2018-07-16] MEDS ORDERED: ONDANSETRON 4 MG/2 ML VIAL IV PRN (13:30)
[2018-07-16] MEDS ORDERED: MAGNESIUM HYDROXIDE 30 ML LIQUID UDC PO PRN ×2 (13:30)
[2018-07-16] MEDS ORDERED: ACETAMINOPHEN 650 MG SUPP.RECT RC PRN (13:30)
[2018-07-16] MEDS ORDERED: ACETAMINOPHEN 325 MG TABLET PO PRN ×2 (13:30)
[2018-07-16 13:41] LABS: BASOPHILS # (AUTO) 0.1 K/uL (0.0-8.0); BASOPHILS % (AUTO) 0.6 % (0.0-2.0); EOSINOPHILS % (AUTO) 0.4 % (0.0-7.0); HEMOGLOBIN 11.3 g/dL (10.9-14.3); LYMPHOCYTES # (AUTO) 2.5 K/uL (20.0-40.0); LYMPHOCYTES % (AUTO) 22.3 % (20.5-51.5); MEAN CORPUSCULAR HEMOGLOBIN 31.3 uug (24.7-32.8); MEAN CORPUSCULAR HGB CONC 33 g/dL (32.3-35.6); MEAN CORPUSCULAR VOLUME 93.9 fL (75.5-95.3); MONOCYTES # (AUTO) 0.8 K/uL (2.0-10.0); NEUTROPHILS # (AUTO) 7.7 K/uL (1.8-8.9); NEUTROPHILS % (AUTO) 69.7 % (38.5-71.5); PLATELET COUNT (AUTO) 424 K/uL (179-408); RED BLOOD CELL COUNT(AUTO) 3.62 MIL/uL (3.63-4.92); WHITE BLOOD COUNT (AUTO) 11.1 K/uL (3.8-11.8)
[2018-07-16] MEDS ORDERED: ALBUTEROL SULFATE 1.25 MG/3 ML NEBU NEB PRN (14:00)
[2018-07-16] MEDS ORDERED: MEROPENEM 1 G VIAL IV SCH (14:00)
--- NOTE | 2018-07-16 15:11 | NUR ---
PATIENT CAME FROM ER , ADMIT TO TELE BP 92/60 AO2, NOTED RECTAL BLEEDING ( BRIGHT RED COLOR), DRESIING CHANGED
--- NOTE | 2018-07-16 15:43 | NUR ---
KATEY CALLED MD HERMOSILLO AND LEFT MSG
--- NOTE | 2018-07-16 16:40 | NUR ---
DR HERMOSILLO WAS CALLED AGAIN AND MSG LEFT ABOUT BP 79/56
--- NOTE | 2018-07-16 16:50 | NUR ---
KATEY CEJA AND LEFT A MSG
--- NOTE | 2018-07-16 16:55 | NUR ---
DR SWAN WAS REACHED AND TRANSFER TO CCU WAS ORDERED LEVOPHED DRIP START ORDER CBC STAT
[2018-07-16] MEDS ORDERED: risperiDONE 0.5 MG TABLET PO SCH (17:00)
[2018-07-16] MEDS ORDERED: Medication Not On Formulary EA (Amino Acids/Protein Hydrolys (Pro-Stat Liquid) 30 ML) PO SCH (17:00)
--- NOTE | 2018-07-16 17:00 | NUR ---
REPORT GIVEN AND TRANSFER TO [facility] LEVOPHED DRIP START ORDER CBC STAT REPORTED TO RN
[2018-07-16 17:28] LABS: BASOPHILS % (AUTO) 0.3 % (0.0-2.0); EOSINOPHILS % (AUTO) 0.4 % (0.0-7.0); HEMATOCRIT 29.9 % (31.2-41.9); HEMOGLOBIN 10.2 g/dL (10.9-14.3); LYMPHOCYTES # (AUTO) 2.1 K/uL (20.0-40.0); LYMPHOCYTES % (AUTO) 19.4 % (20.5-51.5); MEAN CORPUSCULAR HEMOGLOBIN 32.3 uug (24.7-32.8); MEAN CORPUSCULAR HGB CONC 34 g/dL (32.3-35.6); MEAN CORPUSCULAR VOLUME 94.3 fL (75.5-95.3); MONOCYTES # (AUTO) 0.7 K/uL (2.0-10.0); MONOCYTES % (AUTO) 6.7 % (0.0-11.0); NEUTROPHILS # (AUTO) 7.9 K/uL (1.8-8.9); NEUTROPHILS % (AUTO) 73.2 % (38.5-71.5); PLATELET COUNT (AUTO) 364 K/uL (179-408); RED BLOOD CELL COUNT(AUTO) 3.17 MIL/uL (3.63-4.92); WHITE BLOOD COUNT (AUTO) 10.8 K/uL (3.8-11.8)
--- NOTE | 2018-07-16 17:45 | NUR ---
started on levophed drip to keep sbp>90. NS iv infusing also wide open Addendum: 07/16/18 at 1803 by MICHELLE GARCIA RN Amended: Links added.
--- NOTE | 2018-07-16 18:02 | NUR ---
call to dr Valerio to inform of patient's transfer to the ccu. Dr Rosenthal returned call and gave orders for levophed drip and insert PICC line Addendum: 07/16/18 at 1802 by MICHELLE GARCIA RN Amended: Links added. Addendum: 07/16/18 at 1803 by MICHELLE GARCIA RN Amended: Links added.
[2018-07-16] MEDS: MEROPENEM 0.5 G in IV NORMAL SALINE 50 ML IV SCH (18:19)
[2018-07-16] MEDS: NOREPINEPHRINE BITARTRATE 8 MG in IV DEXTROSE 5% 500 ML IV PRN (18:55)
--- NOTE | 2018-07-16 19:10 | NUR ---
Report received from Carmelo OLIVIA, pt is awake, talkative and cooperative, alert x1. SBP in upper 80's, levo gtt increased to 3mqc/min. Pt receiving DANNA PICC line at this time, denies any pain or discomfort.
--- NOTE | 2018-07-16 20:30 | NUR ---
PICC line insertion complete, pt tolerated well Addendum: 07/17/18 at 0636 by ANTHONY SANCHEZ RN Informed line is ready to be used. Pt repositioned to rt side for comfort, rectal drain noted. Johnson cath in place, johnnie yellow urine w/ sediments
[2018-07-16] MEDS ORDERED: risperiDONE 1 MG TABLET PO SCH (21:00)
[2018-07-16] MEDS ORDERED: Medication Not On Formulary EA (Sertraline Hcl (Zoloft) 25 MG) PO SCH (21:00)
[2018-07-16] MEDS: SERTRALINE HCL 50 MG TABLET PO SCH (21:49)
[2018-07-16] MEDS: PROTEIN SUPPLEMENT (PROSTAT) 30 ML LIQUID PO SCH (21:49)
[2018-07-16] MEDS: risperiDONE 0.5 MG TABLET PO SCH (21:50)
[2018-07-16] MEDS ORDERED: BENZTROPINE MESYLATE 0.5 MG TABLET ONE (22:16)
--- NOTE | 2018-07-16 22:30 | NUR ---
Lg soft brownish/burgundy colored stool noted, pericare done. SBP between 95 and 110. !cup tahmina pudding and cup jello given. Pt resting quietly, repositioned q2hr for comfort.
[2018-07-16] MEDS: BENZTROPINE MESYLATE 0.5 MG TABLET PO SCH (23:19)
[2018-07-17] VITALS (93 sets, daily range): BP systolic 57–154; BP diastolic 29–101
--- NOTE | 2018-07-17 01:00 | NUR ---
Resting quietly w/ no change noted
--- NOTE | 2018-07-17 04:00 | NUR ---
Continue to reposition q2hr, no change noted.
[2018-07-17] MEDS: MEROPENEM 0.5 G in IV NORMAL SALINE 50 ML IV SCH ×2 (04:06→15:42)
[2018-07-17 04:59] LABS: BASOPHILS % (AUTO) 0.4 % (0.0-2.0); EOSINOPHILS % (AUTO) 0.1 % (0.0-7.0); HEMATOCRIT 27.1 % (31.2-41.9); HEMOGLOBIN 9.3 g/dL (10.9-14.3); LYMPHOCYTES # (AUTO) 2.3 K/uL (20.0-40.0); LYMPHOCYTES % (AUTO) 20.9 % (20.5-51.5); MEAN CORPUSCULAR HEMOGLOBIN 32.2 uug (24.7-32.8); MEAN CORPUSCULAR HGB CONC 34 g/dL (32.3-35.6); MEAN CORPUSCULAR VOLUME 94.3 fL (75.5-95.3); MONOCYTES # (AUTO) 0.6 K/uL (2.0-10.0); MONOCYTES % (AUTO) 5.3 % (0.0-11.0); NEUTROPHILS # (AUTO) 7.9 K/uL (1.8-8.9); NEUTROPHILS % (AUTO) 73.3 % (38.5-71.5); PLATELET COUNT (AUTO) 380 K/uL (179-408); RED BLOOD CELL COUNT(AUTO) 2.88 MIL/uL (3.63-4.92); WHITE BLOOD COUNT (AUTO) 10.8 K/uL (3.8-11.8)
[2018-07-17 05:15] LABS: CARBON DIOXIDE 27 mmol/L (21-32); CHLORIDE 104 mmol/L (98-107); CHOLESTEROL 105 mg/dL (<200); CREATININE 0.7 mg/dL (0.6-1.3); GLUCOSE 134 mg/dL (74-106); HDL CHOLESTEROL 50 mg/dL (40-60); MAGNESIUM 1.7 mg/dL (1.8-2.4); PHOSPHOROUS 2.6 mg/dL (2.5-4.9); TRIGLYCERIDES 128 MG/DL (30-150); UREA NITROGEN, BLOOD 20 mg/dL (7-18)
--- NOTE | 2018-07-17 07:30 | NUR ---
report received from Raz Fabian RN, 73 yr old female was admitted 07/16/18 for rectal bleed and hypotension. was admitted to [facility] and got transferred to [facility]3 for hypotension at 1710, same day. was placed on levophed drip to keep sbp >90. patient awake .conversant but confused. ekg is sinus rhthym, reed catheter intact with scanty urine output Addendum: 07/17/18 at 0926 by MICHELLE GARCIA RN Amended: Links added.
[2018-07-17] MEDS: CYANOCOBALAMIN 1,000 MCG TABLET PO SCH (08:00)
[2018-07-17] MEDS: ASCORBIC ACID 500 MG TABLET PO SCH (08:00)
[2018-07-17] MEDS: DOCUSATE SODIUM 100 MG CAPSULE PO SCH (08:00)
[2018-07-17] MEDS: MULTIVITAMINS,THERAPEUTIC TABLET PO SCH (08:00)
[2018-07-17] MEDS: risperiDONE 0.25 MG TABLET PO SCH ×2 (08:00→17:30)
[2018-07-17] MEDS: ZINC SULFATE 220 MG CAPSULE PO SCH (08:00)
[2018-07-17] MEDS: PROTEIN SUPPLEMENT (PROSTAT) 30 ML LIQUID PO SCH ×2 (08:04→17:27)
[2018-07-17] MEDS ORDERED: Medication Not On Formulary EA (Multivitamins W-Minerals (Multivitamin With Minerals) 1 PO SCH (09:00)
[2018-07-17] MEDS ORDERED: CLOPIDOGREL 75 MG TABLET PO SCH (09:00)
[2018-07-17] MEDS ORDERED: MAGNESIUM SULFATE/D5W 100 ML IV SCH (09:45)
[2018-07-17] MEDS ORDERED: IV NS 1000 ML 1,000 ML IV PRN (09:45)
--- NOTE | 2018-07-17 09:45 | NUR ---
seen by dr moore with new orders Addendum: 07/17/18 at 0945 by MICHELLE GARCIA RN Amended: Links added.
[2018-07-17] MEDS: BENZTROPINE MESYLATE 0.5 MG TABLET PO SCH ×2 (09:49→17:28)
--- NOTE | 2018-07-17 12:48 | NUR ---
seen by dr eldridge with new orders Addendum: 07/17/18 at 1248 by MICHELLE GARCIA RN Amended: Links added.
[2018-07-17] MEDS: IV NS 1000 ML 1,000 ML IV PRN ×2 (13:28→20:21)
[2018-07-17] MEDS: NOREPINEPHRINE BITARTRATE 8 MG in IV DEXTROSE 5% 500 ML IV PRN (18:50)
--- NOTE | 2018-07-17 19:30 | NUR ---
ROUNDS MADE PATIENT IN BED AWAKE ,ALERT X1 VERBALLY RESPONSIVE ANSWERS SIMPLE QUESTIONS AND FOLLOW SIMPLE COMMANDS.NO S/S/ OF PAIN DENIES PAIN WHEN ASKED .MITTENS ON TO BILATERAL HANDS FOLLOW RESTRAINTS PROTOCOL FOR SAFETY . LEVOPHED DRIP IN PROGRESS NOW AT 6 MCG/MIN TO KEEP BP >90 MM/HG .SEE FLOW SHEET AND V/S SHEET .NO RESPIRATORY DISTRESS NOTED BREATHING EVEN AND UNLABORED ON ROOM AIR.HOB UP . F/C TO BSD WITH YELLOWISH URINE.CONTINUE TO MONITOR V/S .
--- NOTE | 2018-07-17 19:40 | NUR ---
report given to Carlos RN Addendum: 07/17/18 at 1941 by MICHELLE GARCIA RN Amended: Links added.
--- NOTE | 2018-07-17 20:00 | NUR ---
HAD BM X1 MODERATE SOFT BROWNISH IN COLOR .CHANGED SOILED LINENS AND GOWN .SKIN CARE DONE ,APPLIED Z GUARD TO SACRAL AREA AND PLACED MEPILEX TO SACRAL AREA .PREETHI DRAIN INTACT . TURNED AND REPOSITION . SCDS USED TO BILATERAL LEGS HEELS OFFLOADED WITH PILLOWS .
--- NOTE | 2018-07-17 20:15 | NUR ---
PATIENT DAUGHTER CAME TO VISIT , UPDATED WITH PATIENT STATUS AND CONDITION .DAUGHTER AWARE ABOUT LOW BP AND ON LEVOPHED DRIP TO HELP WITH BP . NO ACTIVE BLEEDING NOTED AT THIS TIME . WILL CONTINUE TO MONITOR V/S .TOOK DAUGHTER TELEPHONE NO > IN CASE NEEDED FOR EMERGENCY . DAUGHTER ALSO ASKED ABOUT THE PICC LINE SHE SAID SHE GAVE CONSENT AND IF ITS WAS INSERTED INSERTED ,EDUCATED THAT ABOUT PICC LINE AND ITS BETTER FOR BLOOD DRAWS AND MEDICATIONS .
[2018-07-17] MEDS: risperiDONE 0.5 MG TABLET PO SCH (20:23)
[2018-07-17] MEDS: SERTRALINE HCL 50 MG TABLET PO SCH (20:23)
[2018-07-18] VITALS (90 sets, daily range): BP systolic 73–129; BP diastolic 23–81
[2018-07-18] MEDS: MEROPENEM 0.5 G in IV NORMAL SALINE 50 ML IV SCH ×2 (04:12→16:01)
[2018-07-18 05:15] LABS: ALANINE AMINOTRANSFERASE 11 U/L (14-59); ALKALINE PHOSPHATASE 136 U/L (50-136); ASPARTATE AMINOTRANSFERASE 7 U/L (15-37); BILIRUBIN,TOTAL 0.3 mg/dL (0.2-1.0); CARBON DIOXIDE 26 mmol/L (21-32); CHLORIDE 106 mmol/L (98-107); CREATININE 0.7 mg/dL (0.6-1.3); GLUCOSE 116 mg/dL (74-106); MAGNESIUM 2.1 mg/dL (1.8-2.4); PHOSPHOROUS 2.1 mg/dL (2.5-4.9); POTASSIUM 3.5 mmol/L (3.5-5.1); TOTAL PROTEIN, SERUM 5.4 g/dL (6.4-8.2); UREA NITROGEN, BLOOD 18 mg/dL (7-18)
[2018-07-18 05:20] LABS: BASOPHILS % (AUTO) 0.3 % (0.0-2.0); EOSINOPHILS % (AUTO) 0.3 % (0.0-7.0); HEMATOCRIT 26.3 % (31.2-41.9); HEMOGLOBIN 8.9 g/dL (10.9-14.3); LYMPHOCYTES # (AUTO) 2.4 K/uL (20.0-40.0); LYMPHOCYTES % (AUTO) 24.4 % (20.5-51.5); MEAN CORPUSCULAR HEMOGLOBIN 32.2 uug (24.7-32.8); MEAN CORPUSCULAR HGB CONC 34 g/dL (32.3-35.6); MEAN CORPUSCULAR VOLUME 94.7 fL (75.5-95.3); MONOCYTES # (AUTO) 0.7 K/uL (2.0-10.0); NEUTROPHILS # (AUTO) 6.8 K/uL (1.8-8.9); PLATELET COUNT (AUTO) 371 K/uL (179-408); RED BLOOD CELL COUNT(AUTO) 2.77 MIL/uL (3.63-4.92)
[2018-07-18] MEDS: IV NS 1000 ML 1,000 ML IV PRN ×2 (06:04→15:58)
[2018-07-18] MEDS: CYANOCOBALAMIN 1,000 MCG TABLET PO SCH (10:11)
[2018-07-18] MEDS: ZINC SULFATE 220 MG CAPSULE PO SCH (10:11)
[2018-07-18] MEDS: ASCORBIC ACID 500 MG TABLET PO SCH (10:11)
[2018-07-18] MEDS: risperiDONE 0.25 MG TABLET PO SCH ×2 (10:11→16:29)
[2018-07-18] MEDS: MULTIVITAMINS,THERAPEUTIC TABLET PO SCH (10:11)
[2018-07-18] MEDS: DOCUSATE SODIUM 100 MG CAPSULE PO SCH (10:11)
[2018-07-18] MEDS: PROTEIN SUPPLEMENT (PROSTAT) 30 ML LIQUID PO SCH ×2 (10:12→16:28)
[2018-07-18] MEDS: BENZTROPINE MESYLATE 0.5 MG TABLET PO SCH ×2 (10:12→16:26)
--- NOTE | 2018-07-18 11:54 | NUR ---
WOUND CARE CONSULT: PT PRESENTS WITH SACRAL SCAR AND SURGICAL SITES TO BILATERAL BUTTOCKS/PERIANAL AREA, PRESENT ON ADMISSION. PT ALSO NOTED TO HAVE BRUISING TO RT HIP AND DRY SCAB TO RT HEEL. PT NOTED TO BE RUBBING HER HEEL ON THE BED. RECOMMENDATIONS MADE FOR SKIN PROTECTION AND DISCUSSED WITH NURSING STAFF. DEFER TO MD FOR POSSIBLE SURGICAL CONSULT FOR SURGICAL SITE. WILL SEE DEMETRICE. IN AGREEMENT WITH PLAN OF CARE. Addendum: 07/18/18 at 1157 by AYALA NIEVES RN Amended: Links added.
--- NOTE | 2018-07-18 14:08 | NUR ---
Attending physician. Dr. Hubbard in the unit to see and examine pt. full report given. orders to continue with current care plan received.
[2018-07-18] MEDS ORDERED: NEUTRA PHOS PACKET PO ONE (16:00)
[2018-07-18] MEDS: NOREPINEPHRINE BITARTRATE 8 MG in IV DEXTROSE 5% 500 ML IV PRN (17:26)
--- NOTE | 2018-07-18 18:44 | NUR ---
Patient seen and examined by medical corps officer Dr. Mena, report given orders to continue with current care plan received.
[2018-07-18] MEDS: risperiDONE 0.5 MG TABLET PO SCH (21:00)
[2018-07-18] MEDS: SERTRALINE HCL 50 MG TABLET PO SCH (21:00)
[2018-07-19] VITALS (96 sets, daily range): BP systolic 83–139; BP diastolic 40–99
[2018-07-19] MEDS: IV NS 1000 ML 1,000 ML IV PRN ×2 (02:14→21:11)
[2018-07-19] MEDS: MEROPENEM 0.5 G in IV NORMAL SALINE 50 ML IV SCH ×2 (03:00→15:50)
[2018-07-19 05:12] LABS: BASOPHILS % (AUTO) 0.3 % (0.0-2.0); EOSINOPHILS # (AUTO) 0.1 K/uL (0.0-0.7); HEMATOCRIT 23.9 % (31.2-41.9); HEMOGLOBIN 8.4 g/dL (10.9-14.3); LYMPHOCYTES % (AUTO) 22.1 % (20.5-51.5); MEAN CORPUSCULAR HEMOGLOBIN 33.2 uug (24.7-32.8); MEAN CORPUSCULAR HGB CONC 35 g/dL (32.3-35.6); MEAN CORPUSCULAR VOLUME 93.9 fL (75.5-95.3); MONOCYTES # (AUTO) 0.6 K/uL (2.0-10.0); MONOCYTES % (AUTO) 7.1 % (0.0-11.0); NEUTROPHILS # (AUTO) 6.2 K/uL (1.8-8.9); NEUTROPHILS % (AUTO) 69.5 % (38.5-71.5); PLATELET COUNT (AUTO) 333 K/uL (179-408); RED BLOOD CELL COUNT(AUTO) 2.54 MIL/uL (3.63-4.92); WHITE BLOOD COUNT (AUTO) 8.9 K/uL (3.8-11.8)
[2018-07-19 05:15] LABS: CARBON DIOXIDE 28 mmol/L (21-32); CHLORIDE 104 mmol/L (98-107); CREATININE 0.5 mg/dL (0.6-1.3); GLUCOSE 101 mg/dL (74-106); PHOSPHOROUS 1.8 mg/dL (2.5-4.9); POTASSIUM 3.2 mmol/L (3.5-5.1); UREA NITROGEN, BLOOD 11 mg/dL (7-18)
--- NOTE | 2018-07-19 06:20 | NUR ---
end of shift report. patient is confused and has been reoriented and redirected. Patient continues to be on levophed. titrated from 6mcg/min to 5mcg/min at 0000 07/19/2018. Vitals signs remain within parameters per MD. Patient had a bowel movement brown in color, partially solid and half liquid. GI, Davina Schmitt, came to see the patient earlier in the evening.
--- NOTE | 2018-07-19 06:43 | NUR ---
Called [facility] medical [facility] to reach on-call physician about patient abnormal lab values: Potassium 3.2. Waiting for call back from Dr. Selvin Cedillo for orders.
[2018-07-19] MEDS: risperiDONE 0.25 MG TABLET PO SCH ×2 (08:13→17:02)
[2018-07-19] MEDS: CYANOCOBALAMIN 1,000 MCG TABLET PO SCH (08:13)
[2018-07-19] MEDS: ZINC SULFATE 220 MG CAPSULE PO SCH (08:13)
[2018-07-19] MEDS: MULTIVITAMINS,THERAPEUTIC TABLET PO SCH (08:13)
[2018-07-19] MEDS: ASCORBIC ACID 500 MG TABLET PO SCH (08:13)
[2018-07-19] MEDS: DOCUSATE SODIUM 100 MG CAPSULE PO SCH (08:13)
[2018-07-19] MEDS: PROTEIN SUPPLEMENT (PROSTAT) 30 ML LIQUID PO SCH ×2 (08:15→17:03)
[2018-07-19] MEDS: BENZTROPINE MESYLATE 0.5 MG TABLET PO SCH ×2 (08:15→17:03)
--- NOTE | 2018-07-19 11:05 | NUR ---
PT.WAS SEEN BY .
--- NOTE | 2018-07-19 12:05 | NUR ---
PT.WAS SEEN BY YAMILETH VALADEZ MD WITH NEW ORDERS.
[2018-07-19] MEDS ORDERED: POTASSIUM CHLORIDE 20 MEQ TAB.PRT.SR PO ONE (13:45)
--- NOTE | 2018-07-19 14:00 | NUR ---
PT.WAS SEEN BY .
[2018-07-19] MEDS ORDERED: NEUTRA PHOS PACKET PO ONE (15:30)
[2018-07-19 17:18] LABS: IRON, SERUM 31 ug/dL (50-175)
[2018-07-19 17:31] LABS: FERRITIN 184 ng/mL (8-252)
[2018-07-19] MEDS: Z GUARD REMEDY PASTE 57 GM TUBE TOP PRN ×2 (17:47→20:23)
--- NOTE | 2018-07-19 18:30 | NUR ---
NO CHANGES IN PT.CONDITION,NO S/S OF DISTRESS OR PAIN NOTED.
--- NOTE | 2018-07-19 19:30 | NUR ---
Report received. Patient confused and disoriented but cooperative. Able to follow simple commands. NAD noted. On continuous Levophed drip for BP support via DANNA PICC line. Turned and repositioned. Addendum: 07/20/18 at 0011 by JARED KU RN Amended: Links added. Addendum: 07/20/18 at 0015 by JARED KU RN Amended: Links added. Addendum: 07/20/18 at 0017 by JARED KU RN Amended: Links added. Addendum: 07/20/18 at 0018 by JARED KU RN Amended: Links added.
--- NOTE | 2018-07-19 20:00 | NUR ---
HOB elevated at all times; but patient's neck is stiff and hyperextended at all times. Total assist with her dinner. No swallowing difficulty. Patient cooperative and pleasant. Addendum: 07/20/18 at 0015 by JARED KU RN Amended: Links added. Addendum: 07/20/18 at 0017 by JARED KU RN Amended: Links added. Addendum: 07/20/18 at 0018 by JARED TAECHARATKIJ RN Amended: Links added.
[2018-07-19] MEDS: NOREPINEPHRINE BITARTRATE 8 MG in IV DEXTROSE 5% 500 ML IV PRN (20:13)
[2018-07-19] MEDS: FAMOTIDINE. 20 MG/2 ML VIAL IV SCH (20:21)
[2018-07-19] MEDS: risperiDONE 0.5 MG TABLET PO SCH (20:22)
[2018-07-19] MEDS: SERTRALINE HCL 50 MG TABLET PO SCH (20:22)
--- NOTE | 2018-07-19 23:30 | NUR ---
Patient agitated and restless. Uses profanity. Advised appropriately. Cleaned for a small liquid green stools. Specimen obtained for stool OB and sent to lab. Addendum: 07/20/18 at 0017 by JARED KU RN Amended: Links added. Addendum: 07/20/18 at 0018 by JARED KU RN Amended: Links added.
[2018-07-20] VITALS (95 sets, daily range): BP systolic 74–159; BP diastolic 42–91
[2018-07-20 00:43] LABS: *OCCULT BLOOD STOOL POSITIVE (NEGATIVE)
--- NOTE | 2018-07-20 01:45 | NUR ---
Remains restless and appears uncomfortable. Medicated with Elfrida; took po medication fairly well.
[2018-07-20] MEDS: HYDROCODONE/APAP 5-325MG TABLET PO PRN (01:48)
[2018-07-20] MEDS: MEROPENEM 0.5 G in IV NORMAL SALINE 50 ML IV SCH ×2 (03:37→16:33)
[2018-07-20 05:14] LABS: CARBON DIOXIDE 25 mmol/L (21-32); CHLORIDE 105 mmol/L (98-107); CREATININE 0.5 mg/dL (0.6-1.3); GLUCOSE 105 mg/dL (74-106); POTASSIUM 3.7 mmol/L (3.5-5.1); UREA NITROGEN, BLOOD 9 mg/dL (7-18)
[2018-07-20] MEDS: IV NS 1000 ML 1,000 ML IV PRN ×2 (06:11→16:36)
--- NOTE | 2018-07-20 06:31 | NUR ---
Hardly slept during the night. Remains agitated on and off. Sometimes unable to get accurate EKG reading. Safety and fall precautions maintained.
--- NOTE | 2018-07-20 07:30 | NUR ---
RECIEVED PT LYING IN BED, AWAKE, ORIENTED TO HER NAME AND MORE PLEASANT. HR IS SR WITH OCCASSIONAL PVC. PT STILL ON LEVOPHED DRIP AT 4MCG/MIN, SBP MAINTAINED ABOVE 100SYSTOLIC. NO APPARENT RESPIRATORY DISTRESS NOTED. AFEBRILE.
[2018-07-20] MEDS: DOCUSATE SODIUM 100 MG CAPSULE PO SCH (09:00)
[2018-07-20] MEDS ORDERED: PANTOPRAZOLE SODIUM 40 MG VIAL IV SCH (09:00)
--- NOTE | 2018-07-20 09:00 | NUR ---
SEEN AND EXAMINED BY DR ENGLISH WITH NEW ORDERS. ORDERED [facility] TO SPPORT BP. PT ATE WELL WITH MAXIMUM ASSIST. SWALLOWS FOOD WELL.
[2018-07-20] MEDS: MULTIVITAMINS,THERAPEUTIC TABLET PO SCH (09:02)
[2018-07-20] MEDS: CYANOCOBALAMIN 1,000 MCG TABLET PO SCH (09:02)
[2018-07-20] MEDS: BENZTROPINE MESYLATE 0.5 MG TABLET PO SCH ×2 (09:02→16:33)
[2018-07-20] MEDS: FAMOTIDINE. 20 MG/2 ML VIAL IV SCH ×2 (09:02→20:34)
[2018-07-20] MEDS: ZINC SULFATE 220 MG CAPSULE PO SCH (09:02)
[2018-07-20] MEDS: risperiDONE 0.25 MG TABLET PO SCH ×2 (09:02→16:33)
[2018-07-20] MEDS: ASCORBIC ACID 500 MG TABLET PO SCH (09:03)
[2018-07-20] MEDS: PROTEIN SUPPLEMENT (PROSTAT) 30 ML LIQUID PO SCH ×2 (09:04→16:34)
[2018-07-20] MEDS: MIDODRINE HCL 5 MG TABLET PO SCH ×2 (09:06→20:33)
[2018-07-20 09:13] LABS: BASOPHILS # (AUTO) 0.1 K/uL (0.0-8.0); BASOPHILS % (AUTO) 1.1 % (0.0-2.0); EOSINOPHILS # (AUTO) 0.1 K/uL (0.0-0.7); LYMPHOCYTES # (AUTO) 2.8 K/uL (20.0-40.0); LYMPHOCYTES % (AUTO) 28.2 % (20.5-51.5); MEAN CORPUSCULAR HEMOGLOBIN 32.1 uug (24.7-32.8); MEAN CORPUSCULAR HGB CONC 34 g/dL (32.3-35.6); MEAN CORPUSCULAR VOLUME 95.6 fL (75.5-95.3); MONOCYTES # (AUTO) 0.8 K/uL (2.0-10.0); MONOCYTES % (AUTO) 7.9 % (0.0-11.0); NEUTROPHILS # (AUTO) 6.1 K/uL (1.8-8.9); NEUTROPHILS % (AUTO) 61.8 % (38.5-71.5); PLATELET COUNT (AUTO) 337 K/uL (179-408); WHITE BLOOD COUNT (AUTO) 9.8 K/uL (3.8-11.8)
[2018-07-20 09:18] LABS: IRON, SERUM 27 ug/dL (50-175)
[2018-07-20 09:33] LABS: HEMATOCRIT 26.8 % (31.2-41.9)
[2018-07-20 09:50] LABS: ALANINE AMINOTRANSFERASE 16 U/L (14-59); ALKALINE PHOSPHATASE 138 U/L (50-136); ASPARTATE AMINOTRANSFERASE 12 U/L (15-37); BILIRUBIN,TOTAL 0.2 mg/dL (0.2-1.0); CARBON DIOXIDE 25 mmol/L (21-32); CHLORIDE 103 mmol/L (98-107); CREATININE 0.5 mg/dL (0.6-1.3); FERRITIN 212 ng/mL (8-252); GLUCOSE 100 mg/dL (74-106); MAGNESIUM 1.6 mg/dL (1.8-2.4); PHOSPHOROUS 2.3 mg/dL (2.5-4.9); TOTAL PROTEIN, SERUM 5.5 g/dL (6.4-8.2); UREA NITROGEN, BLOOD 9 mg/dL (7-18)
--- NOTE | 2018-07-20 13:00 | NUR ---
CALLED UP [facility] AND SPOKE WITH SABINO OLIVIA. UNABLE TO GIVE SURGICAL RECORDS.
--- NOTE | 2018-07-20 13:40 | NUR ---
NOTIFIED KEN SHEN CONCERNING THE PT'S PREETHI DRAIN. SHE WILL FOLLOW UP WITH DR LOWERY AND ALSO WILL CALL DR VALADEZ ABOUT THE PAST SURGERY I&D PF THE PERIANAL AREA ON 04/22/18 DONE IN [facility].
--- NOTE | 2018-07-20 14:00 | NUR ---
PT IS RESTLESS. ALWAYS FIDGITTY.
[2018-07-20] MEDS ORDERED: NEUTRA PHOS PACKET PO ONE (15:15)
--- NOTE | 2018-07-20 18:30 | NUR ---
NOTIFIED DR VALADEZ WITH RESULT OF URINE CULTURE ESBL AND ORDERED PHARMACY TO DOSE.
--- NOTE | 2018-07-20 18:44 | NUR ---
CLINICAL PHARMACY NOTE: VANCOMYCIN DOSING Request for vancomycin dosing on 73 y/o female 149.86cm 43.09kg for UTI and sepsis Temp 97.8 BUN 9 Scr 0.5 WBC 9.8 also on Merrem urine culture ESBL E coli and Enterococcus faecalis. Start vancomycin 750mg ivpb q16 hours. Estimated trough 16. Will order trough level prior to 4th dose. Will continue to monitor
--- NOTE | 2018-07-20 19:30 | NUR ---
Report received. Patient on contact isolation for ESBL enterococcus fecalis in the urine. Oriented to name only; mildly restless, fidgety but cooperative. Reoriented to place and time. On continuous Levophed drip for BP support via PICC line DANNA. Assessment completed. NAD noted. Addendum: 07/21/18 at 0133 by JARED KU RN Amended: Links added. Addendum: 07/21/18 at 0140 by JARED KU RN Amended: Links added. Addendum: 07/21/18 at 0142 by JARED KU RN Amended: Links added. Addendum: 07/21/18 at 0142 by JARED KU RN Amended: Links added. Addendum: 07/21/18 at 0142 by JARED KU RN Amended: Links added. Addendum: 07/21/18 at 0142 by JARED KU RN Amended: Links added. Addendum: 07/21/18 at 0143 by JARED KU RN Amended: Links added. Addendum: 07/21/18 at 0143 by JARED KU RN Amended: Links added. Addendum: 07/21/18 at 0143 by JARED KU RN Amended: Links added. Addendum: 07/21/18 at 0143 by JARED KU RN Amended: Links added.
[2018-07-20] MEDS: VANCOMYCIN IV 750 MG in IV DEXTROSE 5% 250 ML IV SCH (20:33)
[2018-07-20] MEDS: SERTRALINE HCL 50 MG TABLET PO SCH (20:34)
[2018-07-20] MEDS: risperiDONE 0.5 MG TABLET PO SCH (20:35)
--- NOTE | 2018-07-20 20:35 | NUR ---
PO meds crushed and given with pudding. No swallowing difficulty. Talking to self and continues to be fidgety. Safety and fall precautions maintained. Addendum: 07/21/18 at 0140 by JARED KU RN Amended: Links added. Addendum: 07/21/18 at 0142 by JARED KU RN Amended: Links added. Addendum: 07/21/18 at 0142 by JARED TAECHARATKIJ RN Amended: Links added. Addendum: 07/21/18 at 0142 by JARED KU RN Amended: Links added. Addendum: 07/21/18 at 0142 by JARED KU RN Amended: Links added. Addendum: 07/21/18 at 0143 by JARED KU RN Amended: Links added. Addendum: 07/21/18 at 0143 by JARED KU RN Amended: Links added. Addendum: 07/21/18 at 0143 by JARED KU RN Amended: Links added. Addendum: 07/21/18 at 0143 by JARED KU RN Amended: Links added.
[2018-07-20] MEDS: Z GUARD REMEDY PASTE 57 GM TUBE TOP PRN (21:00)
[2018-07-20] MEDS: NOREPINEPHRINE BITARTRATE 8 MG in IV DEXTROSE 5% 500 ML IV PRN (21:24)
[2018-07-21] VITALS (87 sets, daily range): BP systolic 82–136; BP diastolic 41–92
--- NOTE | 2018-07-21 | NUR ---
Sleeping. NAD noted. Levophed drip at 2 mcg/min. Addendum: 07/21/18 at 0142 by JARED KU RN Amended: Links added. Addendum: 07/21/18 at 014 by JARED KU RN Amended: Links added. Addendum: 07/21/18 at 0142 by JARED KU RN Amended: Links added. Addendum: 07/21/18 at 0142 by JARED KU RN Amended: Links added. Addendum: 07/21/18 at 0143 by JARED KU RN Amended: Links added. Addendum: 07/21/18 at 0143 by JARED KU RN Amended: Links added. Addendum: 07/21/18 at 0143 by JARED KU RN Amended: Links added. Addendum: 07/21/18 at 0143 by JARED KU RN Amended: Links added.
[2018-07-21] MEDS: IV NS 1000 ML 1,000 ML IV PRN ×3 (02:13→23:13)
[2018-07-21] MEDS: MEROPENEM 0.5 G in IV NORMAL SALINE 50 ML IV SCH ×2 (03:43→16:16)
[2018-07-21 05:30] LABS: BASOPHILS % (AUTO) 0.6 % (0.0-2.0); EOSINOPHILS # (AUTO) 0.1 K/uL (0.0-0.7); EOSINOPHILS % (AUTO) 1.3 % (0.0-7.0); HEMATOCRIT 26.1 % (31.2-41.9); HEMOGLOBIN 9.2 g/dL (10.9-14.3); LYMPHOCYTES # (AUTO) 1.3 K/uL (20.0-40.0); LYMPHOCYTES % (AUTO) 18.1 % (20.5-51.5); MEAN CORPUSCULAR HEMOGLOBIN 33.2 uug (24.7-32.8); MEAN CORPUSCULAR HGB CONC 35 g/dL (32.3-35.6); MEAN CORPUSCULAR VOLUME 94.6 fL (75.5-95.3); MONOCYTES # (AUTO) 0.6 K/uL (2.0-10.0); MONOCYTES % (AUTO) 7.8 % (0.0-11.0); NEUTROPHILS # (AUTO) 5.3 K/uL (1.8-8.9); NEUTROPHILS % (AUTO) 72.2 % (38.5-71.5); PLATELET COUNT (AUTO) 332 K/uL (179-408); RED BLOOD CELL COUNT(AUTO) 2.76 MIL/uL (3.63-4.92); WHITE BLOOD COUNT (AUTO) 7.3 K/uL (3.8-11.8)
[2018-07-21 05:53] LABS: CARBON DIOXIDE 28 mmol/L (21-32); CHLORIDE 106 mmol/L (98-107); CREATININE 0.5 mg/dL (0.6-1.3); GLUCOSE 94 mg/dL (74-106); MAGNESIUM 1.8 mg/dL (1.8-2.4); PHOSPHOROUS 2.6 mg/dL (2.5-4.9); POTASSIUM 3.5 mmol/L (3.5-5.1); UREA NITROGEN, BLOOD 7 mg/dL (7-18)
--- NOTE | 2018-07-21 07:00 | NUR ---
Remains on Levophed drip at 2 mcg/min. BPs labile. Slept well during the night. Awakens easily to name.
--- NOTE | 2018-07-21 07:30 | NUR ---
RECIEVED PT VERY SOUND ASLEEP. NO APPARENT DISTRESS NOTED. LEVOPHED DRIP STILL IN PROGRESS AT 2MCG/MIN VIA PICC LINE ON THE RIGHT UPPER ARM PATENT AND INTACT.
[2018-07-21] MEDS: DOCUSATE SODIUM 100 MG CAPSULE PO SCH (09:00)
[2018-07-21] MEDS: CYANOCOBALAMIN 1,000 MCG TABLET PO SCH (09:27)
[2018-07-21] MEDS: ASCORBIC ACID 500 MG TABLET PO SCH (09:27)
[2018-07-21] MEDS: MULTIVITAMINS,THERAPEUTIC TABLET PO SCH (09:27)
[2018-07-21] MEDS: FAMOTIDINE. 20 MG/2 ML VIAL IV SCH ×2 (09:27→21:13)
[2018-07-21] MEDS: ZINC SULFATE 220 MG CAPSULE PO SCH (09:28)
[2018-07-21] MEDS: MIDODRINE HCL 5 MG TABLET PO SCH ×2 (09:29→21:14)
[2018-07-21] MEDS: risperiDONE 0.25 MG TABLET PO SCH ×2 (09:29→16:17)
[2018-07-21] MEDS: BENZTROPINE MESYLATE 0.5 MG TABLET PO SCH ×2 (09:30→16:17)
[2018-07-21] MEDS: PROTEIN SUPPLEMENT (PROSTAT) 30 ML LIQUID PO SCH ×2 (09:30→16:17)
--- NOTE | 2018-07-21 10:00 | NUR ---
SEEN AND EXAMINED BY DR LOWERY WITH NEW ORDERS.
--- NOTE | 2018-07-21 12:41 | NUR ---
CLINICAL PHARMACY NOTE: VANCOMYCIN DOSING S:Continue for vancomycin dosing on 73 y/o female 149.86cm 43.09kg for UTI and sepsis O:Temp 97.9 BUN 7 Scr 0.5 WBC 7.3 Temp 97.9 also on Merrem urine culture ESBL E coli and Enterococcus faecalis. A/P:Continue vancomycin 750mg ivpb q16 hours(3rd dose due tomorrow at 0500). Estimated trough 16. Will order trough level prior to 4th dose. Will continue to monitor
[2018-07-21] MEDS: VANCOMYCIN IV 750 MG in IV DEXTROSE 5% 250 ML IV SCH (12:52)
--- NOTE | 2018-07-21 13:00 | NUR ---
PT STILL VERY SLEEPY. ATE ONLY APPLE SAUCE.
--- NOTE | 2018-07-21 18:00 | NUR ---
SEEN AND EXAMINED BY DR TOBIN , NO NEW ORDERS.
[2018-07-21] MEDS: risperiDONE 0.5 MG TABLET PO SCH (21:14)
[2018-07-21] MEDS: SERTRALINE HCL 50 MG TABLET PO SCH (21:14)
[2018-07-22] VITALS (15 sets, daily range): BP systolic 91–128; BP diastolic 41–71
--- NOTE | 2018-07-22 01:50 | NUR ---
1930- AWAKE UNCOOPERATIVE, COMBATIVE .REFUSED TO EAT. MEDS GIVEN CRUSHED WITH APPLE SAUCE. CONFUSED.REPOSITIONED TO SIDE. PREETHI DRAIN TO ANAL AREA INTACT NO DRAINAGE NOTED.NEED TO BE CHECKED BY PTS. KEVIN HAGER ENDORSE IN AM.
[2018-07-22] MEDS: MEROPENEM 0.5 G in IV NORMAL SALINE 50 ML IV SCH ×2 (03:16→16:44)
[2018-07-22] MEDS: VANCOMYCIN IV 750 MG in IV DEXTROSE 5% 250 ML IV SCH (04:06)
[2018-07-22 04:55] LABS: BASOPHILS % (AUTO) 0.8 % (0.0-2.0); EOSINOPHILS # (AUTO) 0.1 K/uL (0.0-0.7); EOSINOPHILS % (AUTO) 1.5 % (0.0-7.0); HEMOGLOBIN 8.9 g/dL (10.9-14.3); LYMPHOCYTES # (AUTO) 1.4 K/uL (20.0-40.0); LYMPHOCYTES % (AUTO) 22.8 % (20.5-51.5); MEAN CORPUSCULAR HEMOGLOBIN 32.5 uug (24.7-32.8); MEAN CORPUSCULAR HGB CONC 34 g/dL (32.3-35.6); MONOCYTES # (AUTO) 0.5 K/uL (2.0-10.0); MONOCYTES % (AUTO) 8.6 % (0.0-11.0); NEUTROPHILS # (AUTO) 4.1 K/uL (1.8-8.9); NEUTROPHILS % (AUTO) 66.3 % (38.5-71.5); PLATELET COUNT (AUTO) 310 K/uL (179-408); RED BLOOD CELL COUNT(AUTO) 2.74 MIL/uL (3.63-4.92); WHITE BLOOD COUNT (AUTO) 6.2 K/uL (3.8-11.8)
[2018-07-22 05:17] LABS: CARBON DIOXIDE 25 mmol/L (21-32); CHLORIDE 103 mmol/L (98-107); CREATININE 0.4 mg/dL (0.6-1.3); GLUCOSE 191 mg/dL (74-106); MAGNESIUM 1.5 mg/dL (1.8-2.4); POTASSIUM 3.1 mmol/L (3.5-5.1); UREA NITROGEN, BLOOD 5 mg/dL (7-18)
--- NOTE | 2018-07-22 06:51 | NUR ---
0500 AM CARE DONE. FED PT. ATE 1 CUP OF JELLO. PT IS COOPERATVE. REPOSITIONED CLOSE MONITORING
--- NOTE | 2018-07-22 08:00 | NUR ---
Nursing note: Report received from outgoing nurse. Noted with s/p I and D rectal abscess drain. Bed side report done with previous shift nurse. Noted with dark brown stool now.
[2018-07-22] MEDS: DOCUSATE SODIUM 100 MG CAPSULE PO SCH (08:06)
[2018-07-22] MEDS: MIDODRINE HCL 5 MG TABLET PO SCH ×2 (08:06→21:00)
[2018-07-22] MEDS: ZINC SULFATE 220 MG CAPSULE PO SCH (08:06)
[2018-07-22] MEDS: ASCORBIC ACID 500 MG TABLET PO SCH (08:06)
[2018-07-22] MEDS: PROTEIN SUPPLEMENT (PROSTAT) 30 ML LIQUID PO SCH ×2 (08:06→16:45)
[2018-07-22] MEDS: FAMOTIDINE. 20 MG/2 ML VIAL IV SCH ×3 (08:06→21:00)
[2018-07-22] MEDS: MULTIVITAMINS,THERAPEUTIC TABLET PO SCH (08:06)
[2018-07-22] MEDS: BENZTROPINE MESYLATE 0.5 MG TABLET PO SCH ×2 (08:06→16:44)
[2018-07-22] MEDS: risperiDONE 0.25 MG TABLET PO SCH ×2 (08:07→17:25)
[2018-07-22] MEDS: CYANOCOBALAMIN 1,000 MCG TABLET PO SCH (08:07)
[2018-07-22] MEDS: MAGNESIUM SULFATE/D5W 100 ML IV SCH ×3 (08:43→10:54)
--- NOTE | 2018-07-22 10:00 | NUR ---
Nursing Note: Seen and examine by Dr. Baez. New orders noted.
[2018-07-22] MEDS: IV NS 1000 ML 1,000 ML IV PRN ×2 (11:05→21:15)
[2018-07-22] MEDS: POTASSIUM PHOSPHATE MM 7.5 MMOL in IV DEXTROSE 5% 100 ML IV SCH ×2 (11:57→14:41)
--- NOTE | 2018-07-22 12:30 | NUR ---
Nursing Note: Pt noted with large dark brown loose stool.
--- NOTE | 2018-07-22 14:19 | NUR ---
CLINICAL PHARMACY NOTE: VANCOMYCIN DOSING S:Continue for vancomycin dosing on 73 y/o female 149.86cm 43.09kg for UTI and sepsis O:Temp 98.1 BUN 5 Scr 0.4 WBC 6.2 also on Merrem urine culture ESBL E coli and Enterococcus faecalis. A/P:Continue vancomycin 750mg ivpb q16 hours(3rd dose given today at 0500). Estimated trough 16. Will order trough level prior to 4th dose(ordered for tonight at 2030-will endorse nurse to hold dose for over 20). Will continue to monitor
--- NOTE | 2018-07-22 15:00 | NUR ---
Nursing Note: Seen and examined by Infectious Disease AGENT.
[2018-07-22] MEDS ORDERED: GUAIFENESIN/DEXTROMETHORPHAN 5 ML UDC PO PRN (19:00)
[2018-07-22] MEDS: CULTURELLE CAPSULE PO SCH (21:01)
[2018-07-22] MEDS: SERTRALINE HCL 50 MG TABLET PO SCH (21:01)
[2018-07-22] MEDS: risperiDONE 0.5 MG TABLET PO SCH (21:01)
--- NOTE | 2018-07-22 21:15 | NUR ---
Received patient via hospital bed, awake, confused not in any form of distress. Noted with PICC line at right upper arm with dressing, intact, to ongoing IV fluid, infusing well. With Johnson catheter to urine bag, draining clear yellow urine. Air mattress in place. DVT pumps in place. Patient no complaints at the moment. Ensured patient safety and comfort. Will continue to monitor.
--- NOTE | 2018-07-22 22:00 | NUR ---
Agree with wound photos on chart. No new skin issues identified.
--- NOTE | 2018-07-22 22:22 | NUR ---
nurses notes- awake,alert. cooperative follows command. had large amont loose black stool. kept clean/dry.repositione, 2109 transferred to room-312 via bed.reports given to Michelle Martinez,
[2018-07-23] VITALS: BP 91/55
[2018-07-23] MEDS: HYDROCODONE/APAP 5-325MG TABLET PO PRN (00:39)
[2018-07-23] MEDS: MEROPENEM 0.5 G in IV NORMAL SALINE 50 ML IV SCH ×2 (03:22→16:45)
[2018-07-23 04:00] VITALS: BP 111/67
--- NOTE | 2018-07-23 06:45 | NUR ---
Patient slept well throughout the night. No distress noted, no hypotensive episode noted. Still with PICC line at right upper arm, intact. Still with reed catheter to urine bag draining clear yellow urine. Turned to sides every 2 hours, heels offloaded. Attended all needs. Ensured safety and comfort.
[2018-07-23 07:06] LABS: BASOPHILS % (AUTO) 0.8 % (0.0-2.0); EOSINOPHILS # (AUTO) 0.1 K/uL (0.0-0.7); EOSINOPHILS % (AUTO) 3.1 % (0.0-7.0); HEMATOCRIT 24.8 % (31.2-41.9); HEMOGLOBIN 8.5 g/dL (10.9-14.3); LYMPHOCYTES # (AUTO) 1.3 K/uL (20.0-40.0); LYMPHOCYTES % (AUTO) 29.5 % (20.5-51.5); MEAN CORPUSCULAR HEMOGLOBIN 32.4 uug (24.7-32.8); MEAN CORPUSCULAR HGB CONC 34 g/dL (32.3-35.6); MEAN CORPUSCULAR VOLUME 95.1 fL (75.5-95.3); MONOCYTES # (AUTO) 0.4 K/uL (2.0-10.0); MONOCYTES % (AUTO) 8.7 % (0.0-11.0); NEUTROPHILS # (AUTO) 2.6 K/uL (1.8-8.9); NEUTROPHILS % (AUTO) 57.9 % (38.5-71.5); PLATELET COUNT (AUTO) 298 K/uL (179-408); RED BLOOD CELL COUNT(AUTO) 2.61 MIL/uL (3.63-4.92); WHITE BLOOD COUNT (AUTO) 4.4 K/uL (3.8-11.8)
[2018-07-23 07:21] LABS: CARBON DIOXIDE 29 mmol/L (21-32); CHLORIDE 108 mmol/L (98-107); CREATININE 0.6 mg/dL (0.6-1.3); GLUCOSE 71 mg/dL (74-106); MAGNESIUM 2.2 mg/dL (1.8-2.4); PHOSPHOROUS 2.6 mg/dL (2.5-4.9); POTASSIUM 3.2 mmol/L (3.5-5.1); UREA NITROGEN, BLOOD 9 mg/dL (7-18)
[2018-07-23 07:45] VITALS: BP 122/57
--- NOTE | 2018-07-23 07:45 | NUR ---
on bed, sleeping comfortably. no distress noted.
--- NOTE | 2018-07-23 08:30 | NUR ---
assisted with breakfast, tolerated well. pleasant, appreciative of care. prn joking with staff. plan of care discussed, verbalized understanding.
[2018-07-23] MEDS: PROTEIN SUPPLEMENT (PROSTAT) 30 ML LIQUID PO SCH ×2 (09:02→16:45)
[2018-07-23] MEDS: MULTIVITAMINS,THERAPEUTIC TABLET PO SCH (09:04)
[2018-07-23] MEDS: DOCUSATE SODIUM 100 MG CAPSULE PO SCH (09:04)
[2018-07-23] MEDS: CYANOCOBALAMIN 1,000 MCG TABLET PO SCH (09:04)
[2018-07-23] MEDS: CULTURELLE CAPSULE PO SCH ×2 (09:04→20:30)
[2018-07-23] MEDS: FAMOTIDINE. 20 MG/2 ML VIAL IV SCH ×2 (09:04→20:30)
[2018-07-23] MEDS: ZINC SULFATE 220 MG CAPSULE PO SCH (09:04)
[2018-07-23] MEDS: risperiDONE 0.25 MG TABLET PO SCH ×2 (09:04→16:45)
[2018-07-23] MEDS: MIDODRINE HCL 5 MG TABLET PO SCH ×2 (09:04→20:31)
[2018-07-23] MEDS: ASCORBIC ACID 500 MG TABLET PO SCH (09:04)
[2018-07-23] MEDS: BENZTROPINE MESYLATE 0.5 MG TABLET PO SCH ×2 (09:05→16:45)
[2018-07-23] MEDS: IV NS 1000 ML 1,000 ML IV PRN (09:18)
[2018-07-23] MEDS: POTASSIUM CHLORIDE 40 MEQ in IV NS 1000 ML 1,000 ML IV PRN ×2 (10:12→23:55)
[2018-07-23 11:58] VITALS: BP 95/57
--- NOTE | 2018-07-23 12:30 | NUR ---
appetite fair, tolerating food ,fluids well
--- NOTE | 2018-07-23 14:00 | NUR ---
picture taken anal fistula placed in progress notes. recent papers from [facility] in the back of the chart. Addendum: 07/23/18 at 1425 by VINICIUS PAUL RN patient sleeping comfortably on right side with pillow support.
[2018-07-23] MEDS: Z GUARD REMEDY PASTE 57 GM TUBE TOP PRN (14:02)
[2018-07-23 16:00] VITALS: BP 106/61
--- NOTE | 2018-07-23 18:15 | NUR ---
called workplace rehabilitation officer , Dr Chaney for level of care change, will do in am with attending md. no family visit noted. patient comfortable, ate well , feeder
[2018-07-23 20:00] VITALS: BP 93/57
[2018-07-23] MEDS: SERTRALINE HCL 50 MG TABLET PO SCH (20:29)
[2018-07-23] MEDS: risperiDONE 0.5 MG TABLET PO SCH (20:30)
[2018-07-24] VITALS (7 sets, daily range): BP systolic 94–123; BP diastolic 49–71
[2018-07-24] MEDS: MEROPENEM 0.5 G in IV NORMAL SALINE 50 ML IV SCH ×2 (04:09→16:33)
--- NOTE | 2018-07-24 06:23 | NUR ---
PATIENT SLEPT INTERMITTENTLY. NO SIGNS OF ACUTE DISTRESS. PICC LINE INTACT AND PATENT. SAFETY AND COMFORT MEASURES PROVIDED. PRESCRIBED MEDICATIONS GIVEN AND TOLERATED WELL. ALL NEEDS ARE MET. TURNED AND REPOSITIONED EVERY 2 HOURS WITH CLASSROOM COORDINATOR. JARRELL CATHETER PATENT AND CARE PROVIDED. WILL ENDORSE ACCORDINGLY TO INCOMING AM NURSE FOR CONTINUITY OF CARE.
[2018-07-24 06:35] LABS: BASOPHILS % (AUTO) 0.6 % (0.0-2.0); EOSINOPHILS # (AUTO) 0.1 K/uL (0.0-0.7); EOSINOPHILS % (AUTO) 1.9 % (0.0-7.0); HEMOGLOBIN 8.5 g/dL (10.9-14.3); LYMPHOCYTES # (AUTO) 1.7 K/uL (20.0-40.0); LYMPHOCYTES % (AUTO) 29.5 % (20.5-51.5); MEAN CORPUSCULAR HEMOGLOBIN 32.6 uug (24.7-32.8); MEAN CORPUSCULAR HGB CONC 34 g/dL (32.3-35.6); MEAN CORPUSCULAR VOLUME 95.4 fL (75.5-95.3); MONOCYTES # (AUTO) 0.4 K/uL (2.0-10.0); MONOCYTES % (AUTO) 7.9 % (0.0-11.0); NEUTROPHILS # (AUTO) 3.4 K/uL (1.8-8.9); NEUTROPHILS % (AUTO) 60.1 % (38.5-71.5); PLATELET COUNT (AUTO) 304 K/uL (179-408); RED BLOOD CELL COUNT(AUTO) 2.62 MIL/uL (3.63-4.92); WHITE BLOOD COUNT (AUTO) 5.6 K/uL (3.8-11.8)
[2018-07-24 06:51] LABS: CARBON DIOXIDE 28 mmol/L (21-32); CHLORIDE 105 mmol/L (98-107); CREATININE 0.4 mg/dL (0.6-1.3); GLUCOSE 73 mg/dL (74-106); PHOSPHOROUS 1.9 mg/dL (2.5-4.9); UREA NITROGEN, BLOOD 8 mg/dL (7-18)
--- NOTE | 2018-07-24 08:00 | NUR ---
Awake, alert, oriented to name, confused, verbally responsive. IVF infusing to PICC RUE. Contact precaution reenforced.
[2018-07-24] MEDS: FAMOTIDINE. 20 MG/2 ML VIAL IV SCH ×2 (10:02→20:56)
[2018-07-24] MEDS: BENZTROPINE MESYLATE 0.5 MG TABLET PO SCH ×2 (10:02→16:33)
[2018-07-24] MEDS: DOCUSATE SODIUM 100 MG CAPSULE PO SCH (10:03)
[2018-07-24] MEDS: MIDODRINE HCL 5 MG TABLET PO SCH ×2 (10:03→20:45)
[2018-07-24] MEDS: CULTURELLE CAPSULE PO SCH ×2 (10:03→20:46)
[2018-07-24] MEDS: CYANOCOBALAMIN 1,000 MCG TABLET PO SCH (10:04)
[2018-07-24] MEDS: ZINC SULFATE 220 MG CAPSULE PO SCH (10:04)
[2018-07-24] MEDS: ASCORBIC ACID 500 MG TABLET PO SCH (10:04)
[2018-07-24] MEDS: MULTIVITAMINS,THERAPEUTIC TABLET PO SCH (10:04)
[2018-07-24] MEDS: risperiDONE 0.25 MG TABLET PO SCH ×2 (10:04→16:33)
[2018-07-24] MEDS: PROTEIN SUPPLEMENT (PROSTAT) 30 ML LIQUID PO SCH ×2 (10:06→16:34)
[2018-07-24] MEDS ORDERED: MULT-24 PO (10:11)
[2018-07-24] MEDS ORDERED: MENT71OI TOP (10:11)
--- NOTE | 2018-07-24 13:39 | NUR ---
Sponge bath given, skin and wound care done. Repositioned comfortably
--- NOTE | 2018-07-24 15:47 | NUR ---
Received call from Tashia SHEN for ID. Isolation will be discontinued after negative result of repeat urine CS and that she will discontinue Merrem. No available Isolation room at SNF, Discharge cancelled.
[2018-07-24] MEDS ORDERED: NEUTRA PHOS PACKET PO ONE (16:00)
[2018-07-24] MEDS: POTASSIUM CHLORIDE 40 MEQ in IV NS 1000 ML 1,000 ML IV PRN (16:33)
--- NOTE | 2018-07-24 18:55 | NUR ---
Repeat urine CS sent to lab. Repositioned in bed. Kept dry and comfortable.
[2018-07-24] MEDS: SERTRALINE HCL 50 MG TABLET PO SCH (20:46)
[2018-07-24] MEDS: risperiDONE 0.5 MG TABLET PO SCH (20:46)
[2018-07-25 03:33] VITALS: BP 121/74
[2018-07-25] MEDS: POTASSIUM CHLORIDE 40 MEQ in IV NS 1000 ML 1,000 ML IV PRN ×2 (05:49→16:26)
--- NOTE | 2018-07-25 06:27 | NUR ---
Patient rested well in between care. Patient is confused but is able to follow simple commands. PICC on DANNA intact and patent with NS Potassium chloride infusing. Johnson in place dwelling well. Seton tube on right buttock and leopoldo drain in left buttock noted. Contact isolation for ESBL urine. Tolerated medications. VSS. No acute distress. No SOB. Comfort provided at all times. Safety measures implemented and effective. Continue plan of care.
[2018-07-25 08:00] VITALS: BP 127/73
[2018-07-25] MEDS: CYANOCOBALAMIN 1,000 MCG TABLET PO SCH ×2 (09:00→09:41)
[2018-07-25] MEDS: ASCORBIC ACID 500 MG TABLET PO SCH ×2 (09:00→09:41)
[2018-07-25] MEDS: ZINC SULFATE 220 MG CAPSULE PO SCH ×2 (09:00→09:41)
[2018-07-25] MEDS: MIDODRINE HCL 5 MG TABLET PO SCH ×2 (09:00→20:51)
[2018-07-25] MEDS: CULTURELLE CAPSULE PO SCH ×3 (09:00→21:00)
[2018-07-25] MEDS: PROTEIN SUPPLEMENT (PROSTAT) 30 ML LIQUID PO SCH ×2 (09:00→16:56)
[2018-07-25] MEDS: FAMOTIDINE. 20 MG/2 ML VIAL IV SCH ×2 (09:39→22:35)
[2018-07-25] MEDS: BENZTROPINE MESYLATE 0.5 MG TABLET PO SCH ×2 (09:41→16:28)
[2018-07-25] MEDS: MULTIVITAMINS,THERAPEUTIC TABLET PO SCH (09:41)
[2018-07-25] MEDS: DOCUSATE SODIUM 100 MG CAPSULE PO SCH (09:41)
[2018-07-25] MEDS: risperiDONE 0.25 MG TABLET PO SCH ×2 (09:41→16:28)
[2018-07-25 11:50] VITALS: BP 112/69
[2018-07-25 12:18] LABS: CARBON DIOXIDE 29 mmol/L (21-32); CHLORIDE 108 mmol/L (98-107); CREATININE 0.4 mg/dL (0.6-1.3); GLUCOSE 84 mg/dL (74-106); PHOSPHOROUS 2.7 mg/dL (2.5-4.9); UREA NITROGEN, BLOOD 6 mg/dL (7-18)
[2018-07-25 12:20] LABS: POTASSIUM 5.8 mmol/L (3.5-5.1)
[2018-07-25 16:10] VITALS: BP 108/66
--- NOTE | 2018-07-25 16:58 | NUR ---
Pt confused. Turned and repositioned for comfort. Agitated and combative at times and uses a lot of foul language. DANNA PICC line triple lumen with NS+40 meq KCL infusing. Refused breakfast but ate at least 40-50% of lunch. Refused meds in am after 2 pills given. Took all pills in the afternoon without any issues including prostat. Pt unable to educate regarding oxygen and nasal cannula. Pt refuses to put nasal cannula and becomes agitated and combative about it. Sacral cleansing done with normal saline, dried and foam applied. SCD's BLE. Air mattress on. Incontinence care done. BM x1 today. bed low and locked. Call light within reached. will cont to monitor.
[2018-07-25] MEDS ORDERED: FUROSEMIDE 20 MG/2 ML VIAL IV ONE (17:30)
--- NOTE | 2018-07-25 18:36 | NUR ---
Notified Dr Baez of K level 5.8 and orders received for lasix 60mg IV once and DC IVF. Pt ate well for dinner, total feed.
[2018-07-25 19:13] VITALS: BP 84/47
[2018-07-25] MEDS ORDERED: IV NORMAL SALINE 500 ML BAG IV ONE (21:00)
[2018-07-25] MEDS: risperiDONE 0.5 MG TABLET PO SCH (21:00)
[2018-07-25] MEDS: SERTRALINE HCL 50 MG TABLET PO SCH (21:00)
[2018-07-25] MEDS ORDERED: IV NORMAL SALINE 1,000 ML IV ONE (23:30)
--- NOTE | 2018-07-25 23:40 | NUR ---
Received patient awake in bed. AAO to self, confused. PICC line in DANNA intact and patent. Patient is hypotensive. Asymptomatic. MD aware. Received orders. Safety and comfort measures implemented. Will continue to monitor throughout shift.
[2018-07-26 02:27] VITALS: BP 105/58
[2018-07-26 03:16] VITALS: BP 108/60
--- NOTE | 2018-07-26 06:05 | NUR ---
Patient rested well in between care. Repositioned q2h. Incontinence care done. Seton tube in right buttock and [place] drain in left buttock cleansed with NS and mepilex placed as barrier. Patient hypotensive. Asymptomatic. Will endorse to incoming nurse accordingly. Continue plan of care.
--- NOTE | 2018-07-26 07:44 | NUR ---
patient is in bed, asleep, no acute distress noted
[2018-07-26] MEDS: risperiDONE 0.25 MG TABLET PO SCH (09:00)
[2018-07-26] MEDS: MIDODRINE HCL 5 MG TABLET PO SCH (09:19)
[2018-07-26] MEDS: BENZTROPINE MESYLATE 0.5 MG TABLET PO SCH (09:19)
[2018-07-26] MEDS: ASCORBIC ACID 500 MG TABLET PO SCH (09:19)
[2018-07-26] MEDS: CYANOCOBALAMIN 1,000 MCG TABLET PO SCH (09:19)
[2018-07-26] MEDS: CULTURELLE CAPSULE PO SCH (09:19)
[2018-07-26] MEDS: MULTIVITAMINS,THERAPEUTIC TABLET PO SCH (09:19)
[2018-07-26] MEDS: DOCUSATE SODIUM 100 MG CAPSULE PO SCH (09:19)
[2018-07-26] MEDS: ZINC SULFATE 220 MG CAPSULE PO SCH (09:19)
[2018-07-26] MEDS: FAMOTIDINE. 20 MG/2 ML VIAL IV SCH (09:20)
[2018-07-26] MEDS: PROTEIN SUPPLEMENT (PROSTAT) 30 ML LIQUID PO SCH (09:20)
[2018-07-26 12:00] VITALS: BP 132/74
--- NOTE | 2018-07-26 15:00 | NUR ---
PATIENT DISCHARGED TO [facility] INTERMEDIATE, STABLE CONDITION. NO ACUTE DISTRESS NOTED, NO SOB, RESP EVEN NONLABORED,SKIN WARM AN DRY TO TOUCH, REPORT GIVEN TO ALIYA AT [facility], BELONGINGS SIGNED BY HEARING SCREEN COORDINATOR. PATIENT DISCHARGED WITH PICC LINE INTACT AT RIGHT UPPER ARM, JARRELL CATHETER INTACT, ALIYA MADE AWARE AND CLEAR AT [facility] THAT JARRELL CATHETER IS INTACT AND DRAINING CLEAR URINE. DISCHARGE INSTRUCTIONS GIVEN TO HEARING SCREEN COORDINATOR. LEFT BUTTOCK PREETHI INTACT.
== END 2018-07-26 15:00 | DRG 871 ==
LOC: ER 11:02 → TELE3 14:10 → CCU 17:05 → TELE-TD3 07-22 21:29 → TELE3 07-23 21:49 → MEDSURG3 07-24 14:15
PROVIDERS: ADMIT Internal Medicine; ATTEND Internal Medicine
PROC: 05HY33Z Insertion of Infusion Device into Upper Vein, Percutaneous Approach (ICD-10-PCS; principal; 2018-07-16)
DX: A41.9 Sepsis, unspecified organism (principal); I21.A1 Myocardial infarction type 2; R65.21 Severe sepsis with septic shock; G93.41 Metabolic encephalopathy; E43 Unspecified severe protein-calorie malnutrition; K62.5 Hemorrhage of anus and rectum; N39.0 Urinary tract infection, site not specified; K61.0 Anal abscess; Z68.1 Body mass index [BMI] 19.9 or less, adult; G30.9 Alzheimer's disease, unspecified; F02.80 Dementia in other diseases classified elsewhere, unspecified severity, without behavioral disturbance, psychotic disturbance, mood disturbance, and anxiety; J44.9 Chronic obstructive pulmonary disease, unspecified; Z86.73 Personal history of transient ischemic attack (TIA), and cerebral infarction without residual deficits; Z90.710 Acquired absence of both cervix and uterus; Z79.02 Long term (current) use of antithrombotics/antiplatelets; F39 Unspecified mood [affective] disorder; E78.5 Hyperlipidemia, unspecified; K56.41 Fecal impaction; B95.2 Enterococcus as the cause of diseases classified elsewhere; B96.20 Unspecified Escherichia coli [E. coli] as the cause of diseases classified elsewhere; Z16.12 Extended spectrum beta lactamase (ESBL) resistance; K40.90 Unilateral inguinal hernia, without obstruction or gangrene, not specified as recurrent; D64.9 Anemia, unspecified; D35.01 Benign neoplasm of right adrenal gland; D35.02 Benign neoplasm of left adrenal gland; F32.9 Major depressive disorder, single episode, unspecified; M19.90 Unspecified osteoarthritis, unspecified site; F41.9 Anxiety disorder, unspecified
CPT/HCPCS: 36415; 36569; 70030-TC; 71045; 83550; 83605; 83690; 83735; 84100; 84443; 85025; 85730; 86850; 86900; 86901; 87040; 87077; 87086; 93005; 93307; 97110; 97530; A4663; G0378; J0696; J1940; J2185; J2405; J3370; J3475; J3480; J3490; J7030; J7040; J7060

== ENCOUNTER 2019-08-09 01:46 | Emergency (ER) | payer MEDICARE, OTHER ==
[~2019-08-09] VITALS: Ht 165.1 cm; Wt 72.6 kg
[~2019-08-09 01:46] MED LIST changes: +ACET650S24 RC; +AMIN30LI2 PO; +ASCO500T10 PO; -ATOR40TA PO; +IPRA3AMP23 IH; -LOPE2CAP PO; +MENT71OI TOP; +MULT-213 PO; +MULT-24 PO; +ZINC1CAP2 PO
--- NOTE | 2019-08-09 01:55 | NUR ---
Patient BIB [facility]T ambulance from [facility]note 3] for PNA, and elevated WBC count. Patient is nonverbal. Respiratory labored and shallow with use of accessory muscles. Patient on a NRB on 10L saturating at 95%. No cardiovascular distress noted, all pulses palpable. Patient in bed at lowest position, sr upx2, call light within reach. Fall precautions implemented per protocol.
[2019-08-09] MEDS ORDERED: IV NS 1000 ML 1,000 ML IV ONE (02:00)
[2019-08-09] MEDS ORDERED: ONDANSETRON 4 MG/2 ML VIAL IV ONE (02:00)
[2019-08-09] MEDS ORDERED: AMOX250S5 PO (02:09)
--- NOTE | 2019-08-09 02:39 | NUR ---
Called [facility] to page Dr. Rosenthal.
[2019-08-09 03:02] LABS: BASOPHILS # (AUTO) 0.1 K/uL (0.0-8.0); BASOPHILS % (AUTO) 0.2 % (0.0-2.0); HEMATOCRIT 39.7 % (31.2-41.9); HEMOGLOBIN 13.5 g/dL (10.9-14.3); LYMPHOCYTES # (AUTO) 0.7 K/uL (20.0-40.0); LYMPHOCYTES % (AUTO) 2.2 % (20.5-51.5); MEAN CORPUSCULAR HEMOGLOBIN 31.7 uug (24.7-32.8); MEAN CORPUSCULAR HGB CONC 34 g/dL (32.3-35.6); MEAN CORPUSCULAR VOLUME 93.3 fL (75.5-95.3); MONOCYTES # (AUTO) 0.8 K/uL (2.0-10.0); MONOCYTES % (AUTO) 2.7 % (0.0-11.0); NEUTROPHILS # (AUTO) 28.4 K/uL (1.8-8.9); NEUTROPHILS % (AUTO) 94.9 % (38.5-71.5); PLATELET COUNT (AUTO) 465 K/uL (179-408); RED BLOOD CELL COUNT(AUTO) 4.25 MIL/uL (3.63-4.92); WHITE BLOOD COUNT (AUTO) 29.9 K/uL (3.8-11.8)
[2019-08-09 03:13] LABS: CREATININE 1.1 mg/dL (0.6-1.3); POTASSIUM 3.8 mmol/L (3.5-5.1)
[2019-08-09 03:25] LABS: BILIRUBIN,TOTAL 0.3 mg/dL (0.2-1.0); TOTAL PROTEIN, SERUM 8.8 g/dL (6.4-8.2)
[2019-08-09] MEDS ORDERED: AZITHROMYCIN IV 500 MG in IV DEXTROSE 5% 250 ML IV ONE ×2 (03:30→04:00)
[2019-08-09] MEDS ORDERED: CEFTRIAXONE 1 G in IV DEXTROSE 5% 50 ML IV ONE ×3 (03:30→04:15)
--- NOTE | 2019-08-09 03:34 | NUR ---
2nd attempt to reach out to [facility] nephrology, still awaiting call back from Dr. Rosenthal
[2019-08-09] MEDS ORDERED: MORPHINE SULFATE 2 MG/1 ML DISP.SYRIN ONE ×2 (03:40→04:44)
--- NOTE | 2019-08-09 03:42 | NUR ---
Dr. Perdomo speaking with Dr. Rosenthal.
--- NOTE | 2019-08-09 03:55 | NUR ---
Report given to CORWIN Freitas
--- NOTE | 2019-08-09 04:10 | NUR ---
Patient noted to have acute distress, on monitor patient o2 saturation plummet lower than 80%. Immediately entered the room to initiate comfort care per ERMD order.
--- NOTE | 2019-08-09 04:19 | NUR ---
Dr. Perdomo speaking with Dr. Rosenthal.
--- NOTE | 2019-08-09 04:30 | NUR ---
Patient's daughter arrived to department, was instructed how to don proper PPE prior to entering the patient room d/t isolation precautions.
[2019-08-09] MEDS ORDERED: LORAZEPAM 2 MG/1 ML VIAL ONE ×3 (04:44→05:07)
--- NOTE | 2019-08-09 04:58 | NUR ---
AGUSTIN Perdomo started giving meds, alternating with morphine and ativan for patient comfort. RN, RT (Franklin), and ERMD remained at bedside promoting care to patient and comfort to daughter while she is at bedside during the event.
[2019-08-09] MEDS ORDERED: MORPHINE SULFATE 4 MG/1 ML DISP.SYRIN ONE ×3 (04:59→05:06)
--- NOTE | 2019-08-09 05:25 | NUR ---
AGUSTIN Perdomo pronounced patients @ 0500; patient's daughter Dane at bedside at time of pronounciation.
--- NOTE | 2019-08-09 05:30 | NUR ---
Provided patient's daughter Dane alone time with patient.
--- NOTE | 2019-08-09 06:30 | NUR ---
Post-mortem care performed; patient was cleaned completely, all IV lines removed from patient, and [place] [facility]
[2019-08-09] MEDS ORDERED: MORPHINE SULFATE 10 MG/1 ML DISP.SYRIN IV ONE (06:45)
[2019-08-09] MEDS ORDERED: LORAZEPAM 2 MG/1 ML VIAL IV ONE (06:45)
== END 2019-08-09 07:09 | disposition expired ==
LOC: ER 01:51
DX: J96.91 Respiratory failure, unspecified with hypoxia (principal); Z66 Do not resuscitate; G30.9 Alzheimer's disease, unspecified; F02.80 Dementia in other diseases classified elsewhere, unspecified severity, without behavioral disturbance, psychotic disturbance, mood disturbance, and anxiety; E78.5 Hyperlipidemia, unspecified; J44.9 Chronic obstructive pulmonary disease, unspecified; Z86.73 Personal history of transient ischemic attack (TIA), and cerebral infarction without residual deficits; Z79.02 Long term (current) use of antithrombotics/antiplatelets; I25.10 Atherosclerotic heart disease of native coronary artery without angina pectoris; Z87.01 Personal history of pneumonia (recurrent); D72.829 Elevated white blood cell count, unspecified; R79.89 Other specified abnormal findings of blood chemistry; R73.9 Hyperglycemia, unspecified; R94.4 Abnormal results of kidney function studies; J18.9 Pneumonia, unspecified organism; Z20.828 Contact with and (suspected) exposure to other viral communicable diseases
CPT/HCPCS: 36415; 80053; 83605; 83880; 84484; 85025; 87040 ×2; 96374; 96375; 99285; J2060 ×3; J2270 ×5; U0003; 70030-TC; A4663; J7030